=== PATIENT | male | born 1975 | race Caucasian/White ===

== ENCOUNTER 2019-03-16 16:08 | Inpatient (IN) | payer MEDICAID ==
[~2019-03-16] VITALS: Ht 170.2 cm; Wt 86.4 kg
[2019-03-16 17:00] VITALS: BP 120/79
[2019-03-16] MEDS ORDERED: LIB25 PO (17:30)
[2019-03-16 18:05] VITALS: BP 128/71
[2019-03-16] MEDS: LORazepam 2 MG TABLET PO PRN (18:25)
[2019-03-16] MEDS: HALOPERIDOL 5 MG TABLET PO PRN (18:25)
[2019-03-16 19:10] VITALS: BP 109/60
[2019-03-16 20:05] VITALS: BP 114/67
[2019-03-16] MEDS ORDERED: GuaiFENesin/D-METHORPHAN [SUGAR-FREE] 200-20MG/10 ML SYRUP UDCUP PO PRN (20:45)
[2019-03-16] MEDS ORDERED: ONDANSETRON HCL 4 MG TABLET PO PRN (20:45)
[2019-03-16] MEDS ORDERED: PETROLATUM,WHITE 28 GM JELLY TP PRN (20:45)
[2019-03-16] MEDS ORDERED: NICOTINE 14 MG/24 HOUR PATCH TD PRN (20:45)
[2019-03-16] MEDS ORDERED: CloNIDine HCL 0.1 MG TABLET PO PRN (20:45)
[2019-03-16] MEDS ORDERED: LOPERAMIDE HCL 2 MG CAPSULE PO PRN (20:45)
[2019-03-16] MEDS ORDERED: DOCUSATE SODIUM 100 MG CAPSULE PO PRN (20:45)
[2019-03-16] MEDS ORDERED: MAG HYDROX/AL HYDROX/SIMETH ES 30 ML SUSPENSION UDCUP PO PRN (20:45)
[2019-03-16] MEDS ORDERED: MAGNESIUM HYDROXIDE SUSPENSION 30 ML UDCUP PO PRN (20:45)
[2019-03-16] MEDS ORDERED: ALBUTEROL SULFATE HFA 90 MCG/PUFF 8 GM INHALER IH PRN (20:45)
[2019-03-16] MEDS ORDERED: IBUPROFEN 400 MG TABLET PO PRN (20:45)
[2019-03-16] MEDS ORDERED: ACETAMINOPHEN 325 MG TABLET PO PRN (20:45)
[2019-03-16 21:10] VITALS: BP 108/70
[2019-03-16 22:24] VITALS: BP 105/60
[2019-03-17] VITALS (8 sets, daily range): BP systolic 99–122; BP diastolic 63–78
[2019-03-17] MEDS: LORazepam 2 MG TABLET PO PRN (06:17)
[2019-03-17] MEDS: HALOPERIDOL 5 MG TABLET PO PRN (06:17)
[2019-03-17 08:30] LABS: BASOPHILS % (AUTO) 0.4 % (0.0-2.0); EOSINOPHILS % (AUTO) 1.4 % (1.0-6.0); HEMATOCRIT 41.3 % (41-53); HEMOGLOBIN 13.6 g/dL (13.5-17.5); LYMPHOCYTES # (AUTO) 0.9 K/uL (1.0-4.8); LYMPHOCYTES % (AUTO) 26.2 % (22.0-44.0); MEAN CORPUSCULAR HEMOGLOBIN 31.5 pg (26.0-34.0); MEAN CORPUSCULAR VOLUME 95 fL (80-100); MONOCYTES # (AUTO) 0.3 K/uL (0.1-1.0); MONOCYTES % (AUTO) 7.9 % (2.0-9.0); NEUTROPHILS # (AUTO) 2.2 K/uL (1.8-7.7); NEUTROPHILS % (AUTO) 64.1 % (40.0-70.0); PLATELET COUNT (AUTO) 155 K/uL (150-450); RED BLOOD CELL COUNT(AUTO) 4.33 MIL/uL (4.50-5.90); RED CELL DISTRIBUTION WIDTH 13.7 % (11.5-14.5)
[2019-03-17 09:01] LABS: ALANINE AMINOTRANSFERASE 264 U/L (12-78); ALBUMIN 3.7 g/dL (3.4-5.0); ALKALINE PHOSPHATASE 96 U/L (46-116); ANION GAP 7 mmol/L (8-16); ASPARTATE AMINOTRANSFERASE 209 U/L (15-37); BILIRUBIN,TOTAL 0.6 mg/dL (0.1-1.0); CARBON DIOXIDE 32 mmol/L (22-29); CHLORIDE 104 mmol/L (98-107); CHOL/HDL RATIO 2.2 (4.2-7.3); CHOLESTEROL 179 mg/dL (131-200); CREATININE 0.96 mg/dL (0.60-1.30); FREE T4 (FREE THYROXINE) 0.78 ng/dL (0.76-1.46); GLOMERULAR FILTR. RATE CALC > 60 mL/min (>60); GLUCOSE,RANDOM 123 mg/dL (70-110); HDL CHOLESTEROL 82 mg/dL (40-60); LDL CHOL (CALC.) 85 mg/dL (0-130); POTASSIUM 4.1 mmol/L (3.5-5.1); SODIUM SERUM 143 mmol/L (136-145); THYROID STIMULATING HORMONE 1.97 uIU/mL (0.36-3.74); TOTAL PROTEIN, SERUM 6.4 g/dL (6.4-8.2); TRIGLYCERIDES 59 mg/dL (15-150); UREA NITROGEN, BLOOD 15 mg/dL (7-18)
[2019-03-17 09:21] LABS: HEMOGLOBIN A1C 5.7 % (4.5-6.2)
[2019-03-17] MEDS ORDERED: LORazepam 2 MG TABLET PO PRN (12:00)
[2019-03-17] MEDS ORDERED: CYANOCOBALAMIN 1,000 MCG/ML VIAL IM ONE (12:00)
[2019-03-17] MEDS: ESCITALOPRAM OXALATE 10 MG TABLET PO SCH (12:50)
[2019-03-17] MEDS: FOLIC ACID 1 MG TABLET PO SCH (12:50)
[2019-03-17] MEDS: MULTIVITAMINS WITH MINERALS, THERAPEUTIC TABLET PO SCH (12:51)
[2019-03-17] MEDS: THIAMINE HCL 100 MG TABLET PO SCH (16:40)
[2019-03-17] MEDS: ZOLPIDEM TARTRATE 10 MG TABLET PO PRN (21:09)
[2019-03-17] MEDS: RisperiDONE 1 MG TABLET PO SCH (21:09)
[2019-03-18 05:09] VITALS: BP 107/60
[2019-03-18] MEDS ORDERED: LORazepam 2 MG TABLET PO PRN (07:00)
[2019-03-18 08:05] VITALS: BP 102/62
[2019-03-18] MEDS: FOLIC ACID 1 MG TABLET PO SCH (09:01)
[2019-03-18] MEDS: ESCITALOPRAM OXALATE 10 MG TABLET PO SCH (09:01)
[2019-03-18] MEDS: THIAMINE HCL 100 MG TABLET PO SCH ×2 (09:02→17:00)
[2019-03-18] MEDS: LORazepam 2 MG TABLET PO SCH ×4 (09:03→20:10)
[2019-03-18] MEDS: MULTIVITAMINS WITH MINERALS, THERAPEUTIC TABLET PO SCH (09:04)
[2019-03-18 17:04] VITALS: BP 110/68
[2019-03-18] MEDS: RisperiDONE 1 MG TABLET PO SCH (20:10)
[2019-03-18] MEDS: ZOLPIDEM TARTRATE 10 MG TABLET PO PRN (20:10)
[2019-03-19 05:22] VITALS: BP 102/68
[2019-03-19 08:28] VITALS: BP 104/63
[2019-03-19] MEDS: THIAMINE HCL 100 MG TABLET PO SCH ×2 (09:03→17:03)
[2019-03-19] MEDS: LORazepam 2 MG TABLET PO SCH ×4 (09:03→20:44)
[2019-03-19] MEDS: FOLIC ACID 1 MG TABLET PO SCH (09:04)
[2019-03-19] MEDS: ESCITALOPRAM OXALATE 10 MG TABLET PO SCH (09:04)
[2019-03-19] MEDS: MULTIVITAMINS WITH MINERALS, THERAPEUTIC TABLET PO SCH (09:04)
[2019-03-19 16:55] VITALS: BP 100/61
[2019-03-19 18:38] VITALS: BP 100/61
[2019-03-19] MEDS: ZOLPIDEM TARTRATE 10 MG TABLET PO PRN (20:45)
[2019-03-19] MEDS: RisperiDONE 1 MG TABLET PO SCH (20:45)
[2019-03-20] MEDS ORDERED: LORazepam 1 MG TABLET PO PRN (07:00)
[2019-03-20 08:01] VITALS: BP 104/62
[2019-03-20] MEDS: FOLIC ACID 1 MG TABLET PO SCH (08:53)
[2019-03-20] MEDS ORDERED: ESCI10TA54 PO (08:53)
[2019-03-20] MEDS: MULTIVITAMINS WITH MINERALS, THERAPEUTIC TABLET PO SCH (08:53)
[2019-03-20] MEDS: ESCITALOPRAM OXALATE 10 MG TABLET PO SCH (08:53)
[2019-03-20] MEDS ORDERED: RISP1 PO (08:53)
[2019-03-20] MEDS: THIAMINE HCL 100 MG TABLET PO SCH (08:59)
[2019-03-20] MEDS ORDERED: LORazepam 1 MG TABLET PO SCH (09:00)
[2019-03-21] MEDS ORDERED: LORazepam 1 MG TABLET PO PRN (07:00)
== END 2019-03-20 10:05 | disposition home or self-care (01) | DRG 750 ==
LOC: B3A 16:49
DX: F25.1 Schizoaffective disorder, depressive type (principal); R45.851 Suicidal ideations; R74.0 Nonspecific elevation of levels of transaminase and lactic acid dehydrogenase [LDH]; I10 Essential (primary) hypertension; K21.9 Gastro-esophageal reflux disease without esophagitis; D72.819 Decreased white blood cell count, unspecified; Z56.0 Unemployment, unspecified; Z59.0 Homelessness; Z79.899 Other long term (current) drug therapy
CPT/HCPCS: 80074; 83036; 84439; 84443; 87081; J3420

== ENCOUNTER 2019-10-24 17:17 | Emergency (ER) | payer MEDICAID, OTHER ==
[~2019-10-24] VITALS: Ht 177.8 cm; Wt 81.8 kg
[~2019-10-24 17:17] MED LIST: ESCI10TA54 PO; RISP1 PO
[2019-10-24] MEDS ORDERED: LIB5 PO (17:32)
[2019-10-24] MEDS ORDERED: LIB25 PO (18:05)
[2019-10-24] MEDS ORDERED: OMEP20 PO (18:05)
[2019-10-24] MEDS ORDERED: HYD25 PO (18:05)
[2019-10-24 18:08] LABS: BASOPHILS % (AUTO) 0.6 % (0.0-2.0); EOSINOPHILS % (AUTO) 1.8 % (1.0-6.0); HEMATOCRIT 37.4 % (41-53); HEMOGLOBIN 12.9 g/dL (13.5-17.5); LYMPHOCYTES # (AUTO) 1.6 K/uL (1.0-4.8); LYMPHOCYTES % (AUTO) 37.1 % (22.0-44.0); MEAN CORPUSCULAR HEMOGLOBIN 32.2 pg (26.0-34.0); MEAN CORPUSCULAR HGB CONC 34.6 G/dL (31.0-37.0); MEAN CORPUSCULAR VOLUME 93 fL (80-100); MONOCYTES # (AUTO) 0.3 K/uL (0.1-1.0); MONOCYTES % (AUTO) 7.3 % (2.0-9.0); NEUTROPHILS # (AUTO) 2.3 K/uL (1.8-7.7); NEUTROPHILS % (AUTO) 53.2 % (40.0-70.0); PLATELET COUNT (AUTO) 201 K/uL (150-450); RED BLOOD CELL COUNT(AUTO) 4.01 MIL/uL (4.50-5.90); RED CELL DISTRIBUTION WIDTH 13.4 % (11.5-14.5)
[2019-10-24 18:17] LABS: ANION GAP 5 mmol/L (8-16); CALCIUM, TOTAL 8.5 mg/dL (8.8-10.5); CARBON DIOXIDE 31 mmol/L (22-29); CHLORIDE 105 mmol/L (98-107); CREATININE 1.19 mg/dL (0.60-1.30); GLOMERULAR FILTR. RATE CALC > 60 mL/min (>60); GLUCOSE,RANDOM 93 mg/dL (70-110); SODIUM SERUM 141 mmol/L (136-145); UREA NITROGEN, BLOOD 10 mg/dL (7-18)
[2019-10-24 18:23] LABS: ALANINE AMINOTRANSFERASE 116 U/L (12-78); ALBUMIN 3.4 g/dL (3.4-5.0); ALKALINE PHOSPHATASE 98 U/L (46-116); ASPARTATE AMINOTRANSFERASE 99 U/L (15-37); BILIRUBIN,TOTAL 0.3 mg/dL (0.1-1.0); TOTAL PROTEIN, SERUM 6.9 g/dL (6.4-8.2)
[2019-10-24 19:08] LABS: AMPHET/METH SCREEN,URINE POSITIVE (NEGATIVE); BARBITURATE SCREEN, URINE NEGATIVE (NEGATIVE); BENZODIAZEPINES SCREEN,URINE POSITIVE (NEGATIVE); CANNABINOID SCREEN,URINE POSITIVE (NEGATIVE); COCAINE SCREEN,URINE NEGATIVE (NEGATIVE); METHADONE SCREEN, URINE NEGATIVE (NEGATIVE); OPIATE SCREEN,URINE NEGATIVE (NEGATIVE)
[2019-10-24 19:12] LABS: PHENCYCLIDINE SCREEN,URINE NEGATIVE (NEGATIVE)
[2019-10-24] MEDS ORDERED: HALOPERIDOL 5 MG TABLET PO ONE (20:00)
[2019-10-24 20:08] VITALS: BP 127/83
== END 2019-10-24 20:16 | disposition home or self-care (01) ==
LOC: EMS 17:18
DX: F25.9 Schizoaffective disorder, unspecified (principal); F32.9 Major depressive disorder, single episode, unspecified; F15.10 Other stimulant abuse, uncomplicated; F12.90 Cannabis use, unspecified, uncomplicated; F19.90 Other psychoactive substance use, unspecified, uncomplicated
CPT/HCPCS: 36415; 80053; 80307; 85025; 99284; G0480

== ENCOUNTER 2019-11-17 16:51 | Emergency (ER) | payer MEDICAID, OTHER ==
[~2019-11-17] VITALS: Ht 172.7 cm; Wt 98.0 kg
[~2019-11-17 16:51] MED LIST changes: -ESCI10TA54 PO; +ESCI10TA61 PO; +HYD25 PO; +LIB25 PO; +LIB5 PO; +OMEP20 PO
[2019-11-17] MEDS ORDERED: RISP1TAB89 PO (18:13)
[2019-11-17] MEDS ORDERED: HYDR-3831 PO (18:13)
[2019-11-17] MEDS ORDERED: RISP2TAB76 PO (18:13)
[2019-11-17] MEDS ORDERED: ESCI20TA43 PO (18:13)
[2019-11-17] MEDS ORDERED: IBUPROFEN 800 MG TABLET PO ONE (18:15)
[2019-11-17 20:00] VITALS: BP 129/93
== END 2019-11-17 20:05 | disposition home or self-care (01) ==
LOC: EMS 16:53
DX: S53.492A Other sprain of left elbow, initial encounter (principal); F31.9 Bipolar disorder, unspecified; F20.9 Schizophrenia, unspecified; F12.90 Cannabis use, unspecified, uncomplicated; F15.90 Other stimulant use, unspecified, uncomplicated; Z79.899 Other long term (current) drug therapy; X50.1XXA Overexertion from prolonged static or awkward postures, initial encounter; Y93.89 Activity, other specified; Y92.89 Other specified places as the place of occurrence of the external cause; Y99.8 Other external cause status

== ENCOUNTER 2020-12-13 17:29 | Inpatient (IN) | payer MEDICAID, OTHER ==
[~2020-12-13] VITALS: Ht 170.2 cm; Wt 82.4 kg
[~2020-12-13 17:29] MED LIST changes: -ESCI10TA61 PO; +ESCI20TA54 PO; +HYDR-3831 PO; -LIB5 PO; -RISP1 PO; +RISP1TAB89 PO; +RISP2TAB76 PO
[2020-12-13] MEDS ORDERED: DiphenhydrAMINE HCL 50 MG/ML VIAL IM ONE (18:00)
[2020-12-13] MEDS ORDERED: LORazepam 2 MG/ML VIAL IM ONE (18:00)
[2020-12-13] MEDS ORDERED: HALOPERIDOL LACTATE 5 MG/ML VIAL IM ONE (18:00)
[2020-12-13 18:50] LABS: COVID AG,FIA SOURCE NASOPHARYNGEAL
[2020-12-13 19:01] LABS: AMPHET/METH SCREEN,URINE NEGATIVE (NEGATIVE); BARBITURATE SCREEN, URINE NEGATIVE (NEGATIVE); BENZODIAZEPINES SCREEN,URINE NEGATIVE (NEGATIVE); CANNABINOID SCREEN,URINE NEGATIVE (NEGATIVE); COCAINE SCREEN,URINE NEGATIVE (NEGATIVE); METHADONE SCREEN, URINE NEGATIVE (NEGATIVE); OPIATE SCREEN,URINE NEGATIVE (NEGATIVE); PHENCYCLIDINE SCREEN,URINE NEGATIVE (NEGATIVE)
[2020-12-13 19:20] LABS: BASOPHILS % (AUTO) 1.2 % (0.0-2.0); HEMATOCRIT 40.2 % (41-53); HEMOGLOBIN 13.4 g/dL (13.5-17.5); LYMPHOCYTES # (AUTO) 1.5 K/uL (1.0-4.8); LYMPHOCYTES % (AUTO) 46.5 % (22.0-44.0); MEAN CORPUSCULAR HGB CONC 33.3 G/dL (31.0-37.0); MEAN CORPUSCULAR VOLUME 96 fL (80-100); MONOCYTES # (AUTO) 0.3 K/uL (0.1-1.0); NEUTROPHILS # (AUTO) 1.3 K/uL (1.8-7.7); NEUTROPHILS % (AUTO) 40.3 % (40.0-70.0); PLATELET COUNT (AUTO) 212 K/uL (150-450); RED BLOOD CELL COUNT(AUTO) 4.18 MIL/uL (4.50-5.90); RED CELL DISTRIBUTION WIDTH 14.6 % (11.5-14.5)
[2020-12-13 19:30] LABS: ANION GAP 13 mmol/L (8-16); CARBON DIOXIDE 25 mmol/L (22-29); CHLORIDE 106 mmol/L (98-107); CREATININE 0.87 mg/dL (0.60-1.30); GLOMERULAR FILTR. RATE CALC > 60 mL/min (>60); GLUCOSE,RANDOM 91 mg/dL (70-110); POTASSIUM 3.8 mmol/L (3.5-5.1); SODIUM SERUM 144 mmol/L (136-145); UREA NITROGEN, BLOOD 9 mg/dL (7-18)
[2020-12-13 19:36] LABS: ALANINE AMINOTRANSFERASE 86 U/L (12-78); ALBUMIN 3.3 g/dL (3.4-5.0); ALKALINE PHOSPHATASE 169 U/L (46-116); ASPARTATE AMINOTRANSFERASE 118 U/L (15-37); BILIRUBIN,TOTAL 0.3 mg/dL (0.1-1.0); TOTAL PROTEIN, SERUM 7.4 g/dL (6.4-8.2)
[2020-12-14] VITALS (7 sets, daily range): BP systolic 114–125; BP diastolic 65–78
[2020-12-14] MEDS: LORazepam 2 MG TABLET PO PRN ×4 (06:13→18:34)
[2020-12-14] MEDS: HALOPERIDOL 5 MG TABLET PO PRN ×2 (06:13→14:31)
[2020-12-14] MEDS ORDERED: INFLUENZA VIRUS VACCINE QVS 2020-21 (6MO+)/PF 60 MCG/0.5 ML SYRINGE IM ONE (06:45)
[2020-12-14] MEDS ORDERED: PETROLATUM,WHITE 28 GM JELLY TP PRN (07:30)
[2020-12-14] MEDS ORDERED: GuaiFENesin/D-METHORPHAN [SUGAR-FREE] 200-20MG/10 ML SYRUP UDCUP PO PRN (07:30)
[2020-12-14] MEDS ORDERED: ALBUTEROL SULFATE HFA 90 MCG/PUFF 8 GM INHALER IH PRN (07:30)
[2020-12-14] MEDS ORDERED: DOCUSATE SODIUM 100 MG CAPSULE PO PRN (07:30)
[2020-12-14] MEDS ORDERED: IBUPROFEN 400 MG TABLET PO PRN (07:30)
[2020-12-14] MEDS ORDERED: CloNIDine HCL 0.1 MG TABLET PO PRN (07:30)
[2020-12-14] MEDS ORDERED: ACETAMINOPHEN 325 MG TABLET PO PRN (07:30)
[2020-12-14] MEDS ORDERED: ONDANSETRON HCL 4 MG TABLET PO PRN (07:30)
[2020-12-14] MEDS ORDERED: MAGNESIUM HYDROXIDE SUSPENSION 30 ML UDCUP PO PRN (07:30)
[2020-12-14] MEDS ORDERED: MAG HYDROX/AL HYDROX/SIMETH ES 30 ML SUSPENSION UDCUP PO PRN (07:30)
[2020-12-14] MEDS: ChlordiazePOXIDE HCL 25 MG CAPSULE PO SCH (16:40)
[2020-12-14] MEDS: LOPERAMIDE HCL 2 MG CAPSULE PO PRN (18:34)
[2020-12-14] MEDS: OLANZapine 10 MG TABLET PO SCH (20:35)
[2020-12-14] MEDS: PARoxetine HCL 20 MG TABLET PO SCH (20:36)
[2020-12-14] MEDS ORDERED: RisperiDONE 2 MG TABLET PO SCH (21:00)
[2020-12-15] VITALS (8 sets, daily range): BP systolic 99–125; BP diastolic 61–83
[2020-12-15] MEDS: OLANZapine 5 MG TABLET PO SCH (08:21)
[2020-12-15] MEDS: BusPIRone HCL 10 MG TABLET PO SCH ×2 (08:21→16:42)
[2020-12-15] MEDS: ChlordiazePOXIDE HCL 25 MG CAPSULE PO SCH ×2 (08:21→16:42)
[2020-12-15 08:35] LABS: CHOL/HDL RATIO 2.6 (4.2-7.3)
[2020-12-15] MEDS ORDERED: ESCITALOPRAM OXALATE 20 MG TABLET PO SCH (09:00)
[2020-12-15] MEDS ORDERED: RisperiDONE 1 MG TABLET PO SCH (09:00)
[2020-12-15] MEDS: LORazepam 2 MG TABLET PO PRN ×2 (12:23→18:57)
[2020-12-15] MEDS: LOPERAMIDE HCL 2 MG CAPSULE PO PRN (18:57)
[2020-12-15] MEDS: PARoxetine HCL 20 MG TABLET PO SCH (20:32)
[2020-12-15] MEDS: OLANZapine 10 MG TABLET PO SCH (20:32)
[2020-12-15] MEDS: ZOLPIDEM TARTRATE 10 MG TABLET PO PRN (20:33)
[2020-12-15] MEDS: NICOTINE 14 MG/24 HOUR PATCH TD PRN (21:38)
[2020-12-16] VITALS (7 sets, daily range): BP systolic 100–126; BP diastolic 62–82
[2020-12-16] MEDS: LORazepam 2 MG TABLET PO PRN (02:02)
[2020-12-16] MEDS: LOPERAMIDE HCL 2 MG CAPSULE PO PRN (02:06)
[2020-12-16] MEDS ORDERED: ChlordiazePOXIDE HCL 25 MG CAPSULE PO PRN ×2 (07:00→10:45)
[2020-12-16] MEDS: ChlordiazePOXIDE HCL 25 MG CAPSULE PO SCH ×5 (09:00→20:13)
[2020-12-16] MEDS: BusPIRone HCL 10 MG TABLET PO SCH ×2 (09:30→17:09)
[2020-12-16] MEDS: OLANZapine 5 MG TABLET PO SCH (09:30)
[2020-12-16] MEDS: OLANZapine 10 MG TABLET PO SCH (20:13)
[2020-12-16] MEDS: PARoxetine HCL 20 MG TABLET PO SCH (20:13)
[2020-12-17 02:30] VITALS: BP 128/77
[2020-12-17] MEDS: HALOPERIDOL 5 MG TABLET PO PRN ×2 (03:20→13:02)
[2020-12-17] MEDS: ZOLPIDEM TARTRATE 10 MG TABLET PO PRN (03:20)
[2020-12-17 04:10] VITALS: BP 106/68
[2020-12-17] MEDS ORDERED: ChlordiazePOXIDE HCL 25 MG CAPSULE PO PRN (07:00)
[2020-12-17 08:09] VITALS: BP 115/69
[2020-12-17] MEDS ORDERED: ChlordiazePOXIDE HCL 25 MG CAPSULE PO SCH (09:00)
[2020-12-17 09:05] VITALS: BP 115/69
[2020-12-17] MEDS: BusPIRone HCL 10 MG TABLET PO SCH ×2 (10:02→17:06)
[2020-12-17] MEDS: ChlordiazePOXIDE HCL 25 MG CAPSULE PO SCH ×4 (10:03→20:45)
[2020-12-17] MEDS: OLANZapine 5 MG TABLET PO SCH (10:31)
[2020-12-17 17:24] VITALS: BP 101/62
[2020-12-17] MEDS: OLANZapine 10 MG TABLET PO SCH (20:45)
[2020-12-17] MEDS: PARoxetine HCL 20 MG TABLET PO SCH (20:45)
[2020-12-17 22:39] VITALS: BP 101/62
[2020-12-18] MEDS ORDERED: ChlordiazePOXIDE HCL 10 MG CAPSULE PO PRN (07:00)
[2020-12-18 09:00] VITALS: BP 128/79
[2020-12-18] MEDS: ChlordiazePOXIDE HCL 10 MG CAPSULE PO SCH ×4 (09:16→20:28)
[2020-12-18] MEDS: OLANZapine 5 MG TABLET PO SCH (09:16)
[2020-12-18] MEDS: BusPIRone HCL 10 MG TABLET PO SCH ×2 (09:16→16:42)
[2020-12-18 13:44] VITALS: BP 128/79
[2020-12-18 17:18] VITALS: BP 111/66
[2020-12-18 19:32] VITALS: BP 111/66
[2020-12-18] MEDS: PARoxetine HCL 20 MG TABLET PO SCH (20:28)
[2020-12-18] MEDS: OLANZapine 10 MG TABLET PO SCH (20:28)
[2020-12-18] MEDS: ZOLPIDEM TARTRATE 10 MG TABLET PO PRN (20:51)
[2020-12-19 01:38] VITALS: BP 125/70
[2020-12-19 04:30] VITALS: BP 124/73
[2020-12-19] MEDS ORDERED: ChlordiazePOXIDE HCL 10 MG CAPSULE PO PRN (07:00)
[2020-12-19 08:27] VITALS: BP 102/65
[2020-12-19 09:00] VITALS: BP 102/65
[2020-12-19] MEDS ORDERED: ChlordiazePOXIDE HCL 10 MG CAPSULE PO SCH (09:00)
[2020-12-19] MEDS: OLANZapine 5 MG TABLET PO SCH (09:59)
[2020-12-19] MEDS: BusPIRone HCL 10 MG TABLET PO SCH ×2 (09:59→18:02)
[2020-12-19] MEDS: ChlordiazePOXIDE HCL 10 MG CAPSULE PO PRN ×2 (10:18→14:18)
[2020-12-19] MEDS: NICOTINE 14 MG/24 HOUR PATCH TD PRN (12:31)
[2020-12-19 17:23] VITALS: BP 110/70
[2020-12-19] MEDS: HALOPERIDOL 5 MG TABLET PO PRN (18:04)
[2020-12-19] MEDS: PARoxetine HCL 20 MG TABLET PO SCH (20:16)
[2020-12-19] MEDS: ZOLPIDEM TARTRATE 10 MG TABLET PO PRN ×2 (20:16→20:37)
[2020-12-19] MEDS: OLANZapine 10 MG TABLET PO SCH (20:16)
[2020-12-20 05:23] VITALS: BP 108/72
[2020-12-20] MEDS ORDERED: ChlordiazePOXIDE HCL 10 MG CAPSULE PO PRN (07:00)
[2020-12-20] MEDS: HALOPERIDOL 5 MG TABLET PO PRN ×2 (08:36→17:01)
[2020-12-20] MEDS: BusPIRone HCL 10 MG TABLET PO SCH ×2 (08:36→17:01)
[2020-12-20] MEDS: OLANZapine 5 MG TABLET PO SCH (08:36)
[2020-12-20 08:42] VITALS: BP 126/80
[2020-12-20] MEDS: QUEtiapine FUMARATE 25 MG TABLET PO PRN ×2 (09:48→20:05)
[2020-12-20 16:26] VITALS: BP 105/65
[2020-12-20] MEDS: THIAMINE 100 MG TABLET PO SCH (17:01)
[2020-12-20] MEDS: OLANZapine 10 MG TABLET PO SCH (20:05)
[2020-12-20] MEDS: ZOLPIDEM TARTRATE 10 MG TABLET PO PRN (20:05)
[2020-12-20] MEDS: PARoxetine HCL 20 MG TABLET PO SCH (20:05)
[2020-12-21 06:04] VITALS: BP 114/82
[2020-12-21 08:18] VITALS: BP 126/88
[2020-12-21] MEDS ORDERED: MULTIVITAMINS, THERAPEUTIC TABLET PO SCH (09:00)
[2020-12-21] MEDS ORDERED: FOLIC ACID 1 MG TABLET PO SCH (09:00)
[2020-12-21] MEDS: OLANZapine 5 MG TABLET PO SCH (09:06)
[2020-12-21] MEDS: BusPIRone HCL 10 MG TABLET PO SCH (09:06)
[2020-12-21] MEDS: THIAMINE 100 MG TABLET PO SCH (09:06)
[2020-12-21] MEDS: HALOPERIDOL 5 MG TABLET PO PRN (09:08)
[2020-12-21] MEDS ORDERED: OLAN10TA3 PO (13:15)
[2020-12-21] MEDS ORDERED: BUSP10TA23 PO (13:15)
[2020-12-21] MEDS ORDERED: PARO-38 PO (13:15)
[2020-12-21] MEDS ORDERED: OLAN5TAB2 PO (13:15)
== END 2020-12-21 16:05 | disposition home or self-care (01) | DRG 750 ==
LOC: EMS 17:29 → B3A 19:00
PROVIDERS: ADMIT Psychiatry & Neurology Child & Adolescent Psychiatry; ATTEND Psychiatry & Neurology Child & Adolescent Psychiatry
DX: F25.1 Schizoaffective disorder, depressive type (principal); R45.851 Suicidal ideations; D72.819 Decreased white blood cell count, unspecified; D64.9 Anemia, unspecified; F10.20 Alcohol dependence, uncomplicated; Z20.822 Contact with and (suspected) exposure to COVID-19
CPT/HCPCS: 87426; 90686; 99291; G0480; J1200; J1630; J2060; 36415-L1; 36415-TC; 80053-TC; 80061-TC; 80307; 80307-TC; 85025-TC; G0008; Z7502; Z7610

== ENCOUNTER 2021-07-29 15:50 | Emergency (ER) | payer MEDICAID, OTHER ==
[~2021-07-29] VITALS: Ht 175.3 cm; Wt 77.3 kg
[~2021-07-29 15:50] MED LIST changes: +BUSP10TA23 PO; -ESCI20TA54 PO; -HYD25 PO; -HYDR-3831 PO; -LIB25 PO; +OLAN10TA74 PO; +OLAN5TAB52 PO; -OMEP20 PO; +PARO-38 PO; -RISP1TAB89 PO; -RISP2TAB76 PO
[2021-07-29 16:10] VITALS: BP 145/78
[2021-07-29 17:06] LABS: ANION GAP 16 mmol/L (8-16); CALCIUM, TOTAL 8.9 mg/dL (8.8-10.5); CARBON DIOXIDE 22 mmol/L (22-29); CHLORIDE 103 mmol/L (98-107); CREATININE 0.87 mg/dL (0.60-1.30); GLOMERULAR FILTR. RATE CALC > 60 mL/min (>60); GLUCOSE,RANDOM 98 mg/dL (70-110); POTASSIUM 3.8 mmol/L (3.5-5.1); SODIUM SERUM 141 mmol/L (136-145); UREA NITROGEN, BLOOD 5 mg/dL (7-18)
[2021-07-29 17:08] LABS: BASOPHILS % (AUTO) 0.3 % (0.0-2.0); EOSINOPHILS % (AUTO) 1.7 % (1.0-6.0); HEMATOCRIT 43.1 % (41-53); HEMOGLOBIN 14.5 g/dL (13.5-17.5); LYMPHOCYTES # (AUTO) 1.7 K/uL (1.0-4.8); LYMPHOCYTES % (AUTO) 45.3 % (22.0-44.0); MEAN CORPUSCULAR HEMOGLOBIN 32.6 pg (26.0-34.0); MEAN CORPUSCULAR HGB CONC 33.7 G/dL (31.0-37.0); MEAN CORPUSCULAR VOLUME 97 fL (80-100); MONOCYTES # (AUTO) 0.4 K/uL (0.1-1.0); MONOCYTES % (AUTO) 10.3 % (2.0-9.0); NEUTROPHILS # (AUTO) 1.6 K/uL (1.8-7.7); NEUTROPHILS % (AUTO) 42.4 % (40.0-70.0); PLATELET COUNT (AUTO) 184 K/uL (150-450); RED BLOOD CELL COUNT(AUTO) 4.46 MIL/uL (4.50-5.90); RED CELL DISTRIBUTION WIDTH 13.9 % (11.5-14.5)
[2021-07-29 17:12] LABS: ALANINE AMINOTRANSFERASE 213 U/L (12-78); ALBUMIN 4.1 g/dL (3.4-5.0); ALKALINE PHOSPHATASE 120 U/L (46-116); ASPARTATE AMINOTRANSFERASE 242 U/L (15-37); BILIRUBIN,TOTAL 0.5 mg/dL (0.1-1.0); TOTAL PROTEIN, SERUM 7.8 g/dL (6.4-8.2)
[2021-07-29 17:13] LABS: AMPHET/METH SCREEN,URINE POSITIVE (NEGATIVE); BARBITURATE SCREEN, URINE NEGATIVE (NEGATIVE); BENZODIAZEPINES SCREEN,URINE NEGATIVE (NEGATIVE); CANNABINOID SCREEN,URINE NEGATIVE (NEGATIVE); COCAINE SCREEN,URINE NEGATIVE (NEGATIVE); METHADONE SCREEN, URINE NEGATIVE (NEGATIVE); OPIATE SCREEN,URINE NEGATIVE (NEGATIVE)
[2021-07-29 17:15] LABS: PHENCYCLIDINE SCREEN,URINE NEGATIVE (NEGATIVE)
== END 2021-07-29 18:05 | disposition home or self-care (01) ==
LOC: EMS 15:53
DX: F10.129 Alcohol abuse with intoxication, unspecified (principal); F15.10 Other stimulant abuse, uncomplicated; F25.1 Schizoaffective disorder, depressive type; Z79.899 Other long term (current) drug therapy
CPT/HCPCS: 36415; 80053; 80307; 85025; 99283; G0480

== ENCOUNTER 2021-08-19 22:24 | Inpatient (IN) | payer MEDICAID, OTHER ==
[~2021-08-19] VITALS: Ht 170.2 cm; Wt 87.5 kg
[2021-08-19 23:12] LABS: GLUCOMETER DEV NAME(LOC) POC.BV
[2021-08-19] MEDS ORDERED: HALOPERIDOL 5 MG TABLET PO PRN (23:30)
[2021-08-20] MEDS: LORazepam 2 MG TABLET PO PRN (00:39)
[2021-08-20 01:28] VITALS: BP 151/92
[2021-08-20 07:08] LABS: BASOPHILS % (AUTO) 0.4 % (0.0-2.0); EOSINOPHILS % (AUTO) 3.2 % (1.0-6.0); HEMOGLOBIN 13.5 g/dL (13.5-17.5); LYMPHOCYTES # (AUTO) 1.7 K/uL (1.0-4.8); LYMPHOCYTES % (AUTO) 39.4 % (22.0-44.0); MEAN CORPUSCULAR HEMOGLOBIN 32.9 pg (26.0-34.0); MEAN CORPUSCULAR HGB CONC 33.8 G/dL (31.0-37.0); MEAN CORPUSCULAR VOLUME 97 fL (80-100); MONOCYTES # (AUTO) 0.3 K/uL (0.1-1.0); MONOCYTES % (AUTO) 7.9 % (2.0-9.0); NEUTROPHILS # (AUTO) 2.1 K/uL (1.8-7.7); NEUTROPHILS % (AUTO) 49.1 % (40.0-70.0); PLATELET COUNT (AUTO) 178 K/uL (150-450); RED BLOOD CELL COUNT(AUTO) 4.11 MIL/uL (4.50-5.90); RED CELL DISTRIBUTION WIDTH 13.8 % (11.5-14.5)
[2021-08-20 07:22] LABS: HEMOGLOBIN A1C 5.3 % (3.8-5.6)
[2021-08-20 07:33] LABS: ALANINE AMINOTRANSFERASE 173 U/L (12-78); ALBUMIN 3.5 g/dL (3.4-5.0); ALKALINE PHOSPHATASE 112 U/L (46-116); ANION GAP 6 mmol/L (8-16); ASPARTATE AMINOTRANSFERASE 134 U/L (15-37); BILIRUBIN,TOTAL 0.7 mg/dL (0.1-1.0); CALCIUM, TOTAL 8.5 mg/dL (8.8-10.5); CARBON DIOXIDE 29 mmol/L (22-29); CHLORIDE 106 mmol/L (98-107); CHOL/HDL RATIO 2.6 (4.2-7.3); CHOLESTEROL 187 mg/dL (131-200); FREE T4 (FREE THYROXINE) 0.83 ng/dL (0.76-1.46); GLOMERULAR FILTR. RATE CALC > 60 mL/min (>60); GLUCOSE,RANDOM 91 mg/dL (70-110); HDL CHOLESTEROL 71 mg/dL (40-60); LDL CHOL (CALC.) 103 mg/dL (0-130); POTASSIUM 3.8 mmol/L (3.5-5.1); SODIUM SERUM 141 mmol/L (136-145); THYROID STIMULATING HORMONE 2.39 uIU/mL (0.36-3.74); TOTAL PROTEIN, SERUM 6.9 g/dL (6.4-8.2); TRIGLYCERIDES 64 mg/dL (15-150); UREA NITROGEN, BLOOD 11 mg/dL (7-18)
[2021-08-20 08:31] VITALS: BP 134/82
[2021-08-20] MEDS: BusPIRone HCL 15 MG TABLET PO SCH (10:41)
[2021-08-20] MEDS: RisperiDONE 1 MG TABLET PO SCH (10:41)
[2021-08-20] MEDS: GABAPENTIN 300 MG CAPSULE PO SCH (10:41)
[2021-08-20] MEDS: PARoxetine HCL 10 MG TABLET PO SCH (10:41)
[2021-08-20] MEDS: NICOTINE 7 MG/24 HOUR PATCH TD SCH (10:48)
[2021-08-20] MEDS ORDERED: MAGNESIUM HYDROXIDE SUSPENSION 30 ML UDCUP PO PRN (11:15)
[2021-08-20] MEDS ORDERED: CloNIDine HCL 0.1 MG TABLET PO PRN (11:15)
[2021-08-20] MEDS ORDERED: NICOTINE 14 MG/24 HOUR PATCH TD PRN (11:15)
[2021-08-20] MEDS ORDERED: ONDANSETRON HCL 4 MG TABLET PO PRN (11:15)
[2021-08-20] MEDS ORDERED: IBUPROFEN 400 MG TABLET PO PRN (11:15)
[2021-08-20] MEDS ORDERED: GuaiFENesin/D-METHORPHAN [SUGAR-FREE] 200-20MG/10 ML SYRUP UDCUP PO PRN (11:15)
[2021-08-20] MEDS ORDERED: ACETAMINOPHEN 325 MG TABLET PO PRN (11:15)
[2021-08-20] MEDS ORDERED: ALBUTEROL SULFATE HFA 90 MCG/PUFF 8 GM INHALER IH PRN (11:15)
[2021-08-20] MEDS ORDERED: PETROLATUM,WHITE 28 GM JELLY TP PRN (11:15)
[2021-08-20] MEDS ORDERED: DOCUSATE SODIUM 100 MG CAPSULE PO PRN (11:15)
[2021-08-20] MEDS ORDERED: LOPERAMIDE HCL 2 MG CAPSULE PO PRN (11:15)
[2021-08-20 16:17] VITALS: BP 102/65
[2021-08-20] MEDS: HydrOXYzine HCL 25 MG TABLET PO SCH (17:51)
[2021-08-20] MEDS: RisperiDONE 4 MG TABLET PO SCH (20:29)
[2021-08-21 01:00] VITALS: BP 122/78
[2021-08-21 08:07] VITALS: BP 117/60
[2021-08-21] MEDS: RisperiDONE 1 MG TABLET PO SCH (08:39)
[2021-08-21] MEDS: GABAPENTIN 300 MG CAPSULE PO SCH (08:39)
[2021-08-21] MEDS: BusPIRone HCL 15 MG TABLET PO SCH (08:39)
[2021-08-21] MEDS: PARoxetine HCL 10 MG TABLET PO SCH (08:39)
[2021-08-21] MEDS: HydrOXYzine HCL 25 MG TABLET PO SCH ×2 (08:39→16:30)
[2021-08-21] MEDS: NICOTINE 7 MG/24 HOUR PATCH TD SCH (08:40)
[2021-08-21] MEDS: LORazepam 2 MG TABLET PO PRN (13:48)
[2021-08-21 16:12] VITALS: BP 111/60
[2021-08-21] MEDS: RisperiDONE 4 MG TABLET PO SCH (20:30)
[2021-08-22 06:02] VITALS: BP 129/76
[2021-08-22 08:06] VITALS: BP 106/68
[2021-08-22] MEDS: HydrOXYzine HCL 25 MG TABLET PO SCH ×2 (09:10→16:53)
[2021-08-22] MEDS: GABAPENTIN 300 MG CAPSULE PO SCH (09:10)
[2021-08-22] MEDS: RisperiDONE 1 MG TABLET PO SCH (09:11)
[2021-08-22] MEDS: BusPIRone HCL 15 MG TABLET PO SCH (09:11)
[2021-08-22] MEDS: NICOTINE 7 MG/24 HOUR PATCH TD SCH (09:11)
[2021-08-22] MEDS: PARoxetine HCL 10 MG TABLET PO SCH (09:11)
[2021-08-22 16:07] VITALS: BP 107/65
[2021-08-22] MEDS: RisperiDONE 4 MG TABLET PO SCH (20:38)
[2021-08-23 00:58] VITALS: BP 104/62
[2021-08-23 08:22] VITALS: BP 114/69
[2021-08-23] MEDS: GABAPENTIN 300 MG CAPSULE PO SCH (08:46)
[2021-08-23] MEDS: BusPIRone HCL 15 MG TABLET PO SCH (08:46)
[2021-08-23] MEDS: HydrOXYzine HCL 25 MG TABLET PO SCH ×2 (08:46→16:36)
[2021-08-23] MEDS: PARoxetine HCL 10 MG TABLET PO SCH (08:46)
[2021-08-23] MEDS: NICOTINE 7 MG/24 HOUR PATCH TD SCH (08:46)
[2021-08-23] MEDS: RisperiDONE 1 MG TABLET PO SCH (08:46)
[2021-08-23 16:17] VITALS: BP 124/61
[2021-08-23] MEDS: RisperiDONE 4 MG TABLET PO SCH (20:28)
[2021-08-23] MEDS: ZOLPIDEM TARTRATE 10 MG TABLET PO PRN (20:59)
[2021-08-24 06:46] VITALS: BP 119/64
[2021-08-24 08:29] VITALS: BP 115/73
[2021-08-24] MEDS: PARoxetine HCL 10 MG TABLET PO SCH (09:24)
[2021-08-24] MEDS: HydrOXYzine HCL 25 MG TABLET PO SCH ×2 (09:24→16:01)
[2021-08-24] MEDS: RisperiDONE 1 MG TABLET PO SCH (09:24)
[2021-08-24] MEDS: GABAPENTIN 300 MG CAPSULE PO SCH (09:25)
[2021-08-24] MEDS: BusPIRone HCL 15 MG TABLET PO SCH (09:25)
[2021-08-24] MEDS: NICOTINE 7 MG/24 HOUR PATCH TD SCH (09:30)
[2021-08-24] MEDS: LORazepam 2 MG TABLET PO PRN (16:00)
[2021-08-24 16:09] VITALS: BP 109/70
[2021-08-24] MEDS: RisperiDONE 4 MG TABLET PO SCH (20:33)
[2021-08-25 00:33] VITALS: BP 115/72
[2021-08-25 08:04] VITALS: BP 119/73
[2021-08-25] MEDS: RisperiDONE 1 MG TABLET PO SCH (08:24)
[2021-08-25] MEDS: PARoxetine HCL 10 MG TABLET PO SCH (08:24)
[2021-08-25] MEDS: NICOTINE 7 MG/24 HOUR PATCH TD SCH (08:24)
[2021-08-25] MEDS: GABAPENTIN 300 MG CAPSULE PO SCH (08:24)
[2021-08-25] MEDS: BusPIRone HCL 15 MG TABLET PO SCH (08:24)
[2021-08-25] MEDS: HydrOXYzine HCL 25 MG TABLET PO SCH ×2 (08:24→16:42)
[2021-08-25 11:10] LABS: APPEARANCE,URINE CLEAR (CLEAR); BILIRUBIN,URINE NEGATIVE (NEGATIVE); GLUCOSE, URINE (UA) NEGATIVE (NEGATIVE); KETONES,URINE NEGATIVE (NEGATIVE); LEUKOCYTE ESTERASE ,URINE NEGATIVE (NEGATIVE); NITRATE,URINE NEGATIVE (NEGATIVE); OCCULT BLOOD,URINE NEGATIVE (NEGATIVE); PROTEIN,URINE NEGATIVE (NEGATIVE); UROBILINOGEN,URINE 0.2 mg/dL (<=1.0)
[2021-08-25 11:17] LABS: AMPHET/METH SCREEN,URINE NEGATIVE (NEGATIVE); BARBITURATE SCREEN, URINE NEGATIVE (NEGATIVE); BENZODIAZEPINES SCREEN,URINE NEGATIVE (NEGATIVE); CANNABINOID SCREEN,URINE NEGATIVE (NEGATIVE); COCAINE SCREEN,URINE NEGATIVE (NEGATIVE); METHADONE SCREEN, URINE NEGATIVE (NEGATIVE); OPIATE SCREEN,URINE NEGATIVE (NEGATIVE)
[2021-08-25 11:34] LABS: PHENCYCLIDINE SCREEN,URINE NEGATIVE (NEGATIVE)
[2021-08-25 16:07] VITALS: BP 108/66
[2021-08-25] MEDS: RisperiDONE 4 MG TABLET PO SCH (20:07)
[2021-08-25] MEDS: ZOLPIDEM TARTRATE 10 MG TABLET PO PRN (20:07)
[2021-08-26 01:06] VITALS: BP 116/70
[2021-08-26 08:10] VITALS: BP 107/66
[2021-08-26] MEDS: PARoxetine HCL 10 MG TABLET PO SCH (08:16)
[2021-08-26] MEDS: GABAPENTIN 300 MG CAPSULE PO SCH (08:16)
[2021-08-26] MEDS: HydrOXYzine HCL 25 MG TABLET PO SCH ×2 (08:17→16:56)
[2021-08-26] MEDS: RisperiDONE 1 MG TABLET PO SCH (08:17)
[2021-08-26] MEDS: BusPIRone HCL 15 MG TABLET PO SCH (08:17)
[2021-08-26] MEDS: NICOTINE 7 MG/24 HOUR PATCH TD SCH (08:17)
[2021-08-26] MEDS: MAG HYDROX/AL HYDROX/SIMETH ES 30 ML SUSPENSION UDCUP PO PRN (15:03)
[2021-08-26] MEDS: LORazepam 2 MG TABLET PO PRN (15:04)
[2021-08-26 16:14] VITALS: BP 127/81
[2021-08-26] MEDS: RisperiDONE 4 MG TABLET PO SCH (20:18)
[2021-08-26] MEDS: ZOLPIDEM TARTRATE 10 MG TABLET PO PRN (20:21)
[2021-08-27 06:54] VITALS: BP 122/76
[2021-08-27] MEDS: GABAPENTIN 300 MG CAPSULE PO SCH (09:59)
[2021-08-27] MEDS: PARoxetine HCL 10 MG TABLET PO SCH (09:59)
[2021-08-27] MEDS: RisperiDONE 1 MG TABLET PO SCH (09:59)
[2021-08-27] MEDS: HydrOXYzine HCL 25 MG TABLET PO SCH ×2 (09:59→16:15)
[2021-08-27] MEDS: BusPIRone HCL 15 MG TABLET PO SCH (09:59)
[2021-08-27] MEDS: NICOTINE 7 MG/24 HOUR PATCH TD SCH (10:00)
[2021-08-27 10:47] VITALS: BP 130/68
[2021-08-27 16:24] VITALS: BP 119/72
[2021-08-27] MEDS: LORazepam 2 MG TABLET PO PRN (17:14)
[2021-08-27] MEDS: RisperiDONE 4 MG TABLET PO SCH (20:52)
[2021-08-27] MEDS: ZOLPIDEM TARTRATE 10 MG TABLET PO PRN (20:52)
[2021-08-28 06:34] VITALS: BP 121/72
[2021-08-28] MEDS: RisperiDONE 1 MG TABLET PO SCH (08:42)
[2021-08-28] MEDS: HydrOXYzine HCL 25 MG TABLET PO SCH ×2 (08:42→16:20)
[2021-08-28] MEDS: BusPIRone HCL 15 MG TABLET PO SCH (08:42)
[2021-08-28] MEDS: GABAPENTIN 300 MG CAPSULE PO SCH (08:42)
[2021-08-28] MEDS: NICOTINE 7 MG/24 HOUR PATCH TD SCH (08:42)
[2021-08-28] MEDS: LORazepam 2 MG TABLET PO PRN ×2 (08:43→16:19)
[2021-08-28] MEDS: PARoxetine HCL 10 MG TABLET PO SCH (08:43)
[2021-08-28 09:19] VITALS: BP 130/65
[2021-08-28 16:16] VITALS: BP 109/68
[2021-08-28] MEDS: RisperiDONE 4 MG TABLET PO SCH (21:18)
[2021-08-28] MEDS: ZOLPIDEM TARTRATE 10 MG TABLET PO PRN (22:55)
[2021-08-28] MEDS: MAG HYDROX/AL HYDROX/SIMETH ES 30 ML SUSPENSION UDCUP PO PRN (23:00)
[2021-08-29 06:40] VITALS: BP 115/74
[2021-08-29 08:29] VITALS: BP 133/80
[2021-08-29] MEDS: HydrOXYzine HCL 25 MG TABLET PO SCH (08:58)
[2021-08-29] MEDS: PARoxetine HCL 10 MG TABLET PO SCH (08:59)
[2021-08-29] MEDS: GABAPENTIN 300 MG CAPSULE PO SCH (08:59)
[2021-08-29] MEDS: BusPIRone HCL 15 MG TABLET PO SCH (08:59)
[2021-08-29] MEDS: RisperiDONE 1 MG TABLET PO SCH (08:59)
[2021-08-29] MEDS: NICOTINE 7 MG/24 HOUR PATCH TD SCH (09:04)
[2021-08-29] MEDS ORDERED: RISP1TAB48 PO (11:02)
[2021-08-29] MEDS ORDERED: HYD25 PO (11:02)
[2021-08-29] MEDS ORDERED: RISP4TAB73 PO (11:05)
[2021-08-29] MEDS ORDERED: BUSP15 PO (11:05)
[2021-08-29] MEDS ORDERED: PARO10TA89 PO (11:06)
[2021-08-29] MEDS ORDERED: GABA-1181 PO (11:08)
== END 2021-08-29 12:05 | disposition home or self-care (01) | DRG 750 ==
LOC: B2S 23:24 → B3A 08-26 09:36
PROVIDERS: ADMIT Psychiatry & Neurology Child & Adolescent Psychiatry; ATTEND Psychiatry & Neurology Child & Adolescent Psychiatry
DX: F25.1 Schizoaffective disorder, depressive type (principal); D72.819 Decreased white blood cell count, unspecified; F10.10 Alcohol abuse, uncomplicated; F15.10 Other stimulant abuse, uncomplicated; F42.9 Obsessive-compulsive disorder, unspecified; R74.01 Elevation of levels of liver transaminase levels; Z20.822 Contact with and (suspected) exposure to COVID-19; F41.9 Anxiety disorder, unspecified; Z91.14 Patient's other noncompliance with medication regimen; Z59.00 Homelessness unspecified
CPT/HCPCS: 80053; 80061; 80307; 81003; 83036; 84439; 84443; 85025

== ENCOUNTER 2021-09-21 21:00 | Inpatient (IN) | payer MEDICAID ==
[~2021-09-21] VITALS: Ht 170.2 cm; Wt 82.6 kg
[~2021-09-21 21:00] MED LIST changes: -BUSP10TA23 PO; +BUSP15 PO; +GABA-1181 PO; +HYD25 PO; -OLAN10TA74 PO; -OLAN5TAB52 PO; -PARO-38 PO; +PARO10TA89 PO; +RISP1TAB48 PO; +RISP4TAB73 PO
[2021-09-21 22:56] LABS: GLUCOMETER DEV NAME(LOC) POC.BV
[2021-09-22] MEDS ORDERED: HALOPERIDOL 5 MG TABLET PO PRN
[2021-09-22 01:25] VITALS: BP 141/89
[2021-09-22] MEDS ORDERED: PETROLATUM,WHITE 28 GM JELLY TP PRN (07:00)
[2021-09-22] MEDS ORDERED: NICOTINE 14 MG/24 HOUR PATCH TD PRN (07:00)
[2021-09-22] MEDS ORDERED: MAG HYDROX/AL HYDROX/SIMETH ES 30 ML SUSPENSION UDCUP PO PRN (07:00)
[2021-09-22] MEDS ORDERED: ALBUTEROL SULFATE HFA 90 MCG/PUFF 8 GM INHALER IH PRN (07:00)
[2021-09-22] MEDS ORDERED: DOCUSATE SODIUM 100 MG CAPSULE PO PRN (07:00)
[2021-09-22] MEDS ORDERED: MAGNESIUM HYDROXIDE SUSPENSION 30 ML UDCUP PO PRN (07:00)
[2021-09-22] MEDS ORDERED: ONDANSETRON HCL 4 MG TABLET PO PRN (07:00)
[2021-09-22] MEDS ORDERED: IBUPROFEN 400 MG TABLET PO PRN (07:00)
[2021-09-22] MEDS ORDERED: LOPERAMIDE HCL 2 MG CAPSULE PO PRN (07:00)
[2021-09-22] MEDS ORDERED: GuaiFENesin/D-METHORPHAN [SUGAR-FREE] 200-20MG/10 ML SYRUP UDCUP PO PRN (07:00)
[2021-09-22] MEDS ORDERED: ACETAMINOPHEN 325 MG TABLET PO PRN (07:00)
[2021-09-22] MEDS ORDERED: CloNIDine HCL 0.1 MG TABLET PO PRN (07:00)
[2021-09-22 08:20] VITALS: BP 115/69
[2021-09-22 16:25] VITALS: BP 133/81
[2021-09-22] MEDS: LORazepam 2 MG TABLET PO PRN (17:44)
[2021-09-22] MEDS: ZOLPIDEM TARTRATE 10 MG TABLET PO PRN (20:24)
[2021-09-23 00:32] VITALS: BP 115/69
[2021-09-23 08:22] VITALS: BP 118/77
[2021-09-23] MEDS: BusPIRone HCL 15 MG TABLET PO SCH (08:53)
[2021-09-23] MEDS: GABAPENTIN 300 MG CAPSULE PO SCH (08:53)
[2021-09-23] MEDS: PARoxetine HCL 10 MG TABLET PO SCH (08:53)
[2021-09-23] MEDS: HydrOXYzine HCL 25 MG TABLET PO SCH ×2 (08:53→17:04)
[2021-09-23] MEDS: RisperiDONE 1 MG TABLET PO SCH (08:54)
[2021-09-23 16:13] VITALS: BP 121/75
[2021-09-23] MEDS: ZOLPIDEM TARTRATE 10 MG TABLET PO PRN (20:25)
[2021-09-23] MEDS: RisperiDONE 4 MG TABLET PO SCH (20:25)
[2021-09-24 01:05] VITALS: BP 119/68
[2021-09-24 07:32] LABS: BASOPHILS % (AUTO) 0.7 % (0.0-2.0); HEMATOCRIT 39.6 % (41-53); HEMOGLOBIN 13.3 g/dL (13.5-17.5); LYMPHOCYTES # (AUTO) 1.5 K/uL (1.0-4.8); LYMPHOCYTES % (AUTO) 39.4 % (22.0-44.0); MEAN CORPUSCULAR HGB CONC 33.5 G/dL (31.0-37.0); MEAN CORPUSCULAR VOLUME 99 fL (80-100); MONOCYTES # (AUTO) 0.3 K/uL (0.1-1.0); NEUTROPHILS # (AUTO) 1.9 K/uL (1.8-7.7); NEUTROPHILS % (AUTO) 49.9 % (40.0-70.0); PLATELET COUNT (AUTO) 208 K/uL (150-450); RED BLOOD CELL COUNT(AUTO) 4.02 MIL/uL (4.50-5.90); RED CELL DISTRIBUTION WIDTH 13.9 % (11.5-14.5)
[2021-09-24 08:16] VITALS: BP 109/71
[2021-09-24] MEDS: GABAPENTIN 300 MG CAPSULE PO SCH (09:28)
[2021-09-24] MEDS: PARoxetine HCL 10 MG TABLET PO SCH (09:28)
[2021-09-24] MEDS: BusPIRone HCL 15 MG TABLET PO SCH (09:28)
[2021-09-24] MEDS: HydrOXYzine HCL 25 MG TABLET PO SCH ×2 (09:28→16:54)
[2021-09-24] MEDS: RisperiDONE 1 MG TABLET PO SCH (09:29)
[2021-09-24] MEDS: LORazepam 2 MG TABLET PO PRN (12:45)
[2021-09-24 16:27] VITALS: BP 109/64
[2021-09-24] MEDS: RisperiDONE 4 MG TABLET PO SCH (20:37)
[2021-09-24] MEDS: ZOLPIDEM TARTRATE 10 MG TABLET PO PRN (20:51)
[2021-09-25 00:28] VITALS: BP 119/81
[2021-09-25 08:26] VITALS: BP 103/59
[2021-09-25] MEDS: GABAPENTIN 300 MG CAPSULE PO SCH (09:43)
[2021-09-25] MEDS: PARoxetine HCL 10 MG TABLET PO SCH (09:43)
[2021-09-25] MEDS: RisperiDONE 1 MG TABLET PO SCH (09:43)
[2021-09-25] MEDS: HydrOXYzine HCL 25 MG TABLET PO SCH ×2 (09:43→17:00)
[2021-09-25] MEDS: BusPIRone HCL 15 MG TABLET PO SCH (09:43)
[2021-09-25 16:22] VITALS: BP 104/67
[2021-09-25] MEDS: LORazepam 2 MG TABLET PO PRN (16:35)
[2021-09-25] MEDS: RisperiDONE 4 MG TABLET PO SCH (20:36)
[2021-09-25] MEDS: ZOLPIDEM TARTRATE 10 MG TABLET PO PRN (20:36)
[2021-09-26 01:04] VITALS: BP 118/69
[2021-09-26 08:32] VITALS: BP 100/62
[2021-09-26] MEDS: PARoxetine HCL 10 MG TABLET PO SCH (09:09)
[2021-09-26] MEDS: BusPIRone HCL 15 MG TABLET PO SCH (09:09)
[2021-09-26] MEDS: RisperiDONE 1 MG TABLET PO SCH (09:09)
[2021-09-26] MEDS: GABAPENTIN 300 MG CAPSULE PO SCH (09:09)
[2021-09-26] MEDS: HydrOXYzine HCL 25 MG TABLET PO SCH (09:09)
[2021-09-26] MEDS: LORazepam 2 MG TABLET PO PRN (11:19)
== END 2021-09-26 14:00 | disposition home or self-care (01) | DRG 750 ==
LOC: B2S 21:00
PROVIDERS: ADMIT Psychiatry & Neurology Child & Adolescent Psychiatry; ATTEND Psychiatry & Neurology Child & Adolescent Psychiatry
DX: F25.1 Schizoaffective disorder, depressive type (principal); Z59.00 Homelessness unspecified; D64.9 Anemia, unspecified; F10.10 Alcohol abuse, uncomplicated; F41.9 Anxiety disorder, unspecified; R74.01 Elevation of levels of liver transaminase levels; Z20.822 Contact with and (suspected) exposure to COVID-19; Z79.899 Other long term (current) drug therapy; Z91.14 Patient's other noncompliance with medication regimen; Z91.19 Patient's noncompliance with other medical treatment and regimen; Z56.0 Unemployment, unspecified
CPT/HCPCS: 85025; 87081

== ENCOUNTER 2023-01-02 03:40 | Emergency (ER) | payer MEDICAID, OTHER ==
[~2023-01-02] VITALS: Ht 172.7 cm; Wt 81.8 kg
[~2023-01-02 03:40] MED LIST changes: -HYD25 PO; +HYDR-4527 PO
[2023-01-02 04:32] VITALS: BP 120/78
[2023-01-02 04:37] LABS: COVID AG,FIA SOURCE NASAL SWAB
[2023-01-02 05:11] LABS: ANION GAP 11 mmol/L (8-16); CALCIUM, TOTAL 8.8 mg/dL (8.8-10.5); CARBON DIOXIDE 31 mmol/L (22-29); CHLORIDE 103 mmol/L (98-107); CREATININE 0.92 mg/dL (0.60-1.30); GLOMERULAR FILTR. RATE CALC > 60 mL/min (>60); GLUCOSE,RANDOM 89 mg/dL (70-110); POTASSIUM 4.2 mmol/L (3.5-5.1); SODIUM SERUM 145 mmol/L (136-145); UREA NITROGEN, BLOOD 11 mg/dL (7-18)
[2023-01-02 05:17] LABS: ALANINE AMINOTRANSFERASE 79 U/L (12-78); ALBUMIN 4.1 g/dL (3.4-5.0); ALKALINE PHOSPHATASE 111 U/L (46-116); ASPARTATE AMINOTRANSFERASE 57 U/L (15-37); BILIRUBIN,TOTAL 0.4 mg/dL (0.1-1.0); TOTAL PROTEIN, SERUM 7.7 g/dL (6.4-8.2)
[2023-01-02 05:21] LABS: BASOPHILS % (AUTO) 0.6 % (0.0-2.0); EOSINOPHILS % (AUTO) 0.3 % (1.0-6.0); HEMATOCRIT 42.7 % (41-53); HEMOGLOBIN 14.1 g/dL (13.5-17.5); LYMPHOCYTES # (AUTO) 1.9 K/uL (1.0-4.8); LYMPHOCYTES % (AUTO) 37.9 % (22.0-44.0); MEAN CORPUSCULAR HEMOGLOBIN 31.8 pg (26.0-34.0); MEAN CORPUSCULAR VOLUME 96 fL (80-100); MONOCYTES # (AUTO) 0.4 K/uL (0.1-1.0); MONOCYTES % (AUTO) 7.6 % (2.0-9.0); NEUTROPHILS # (AUTO) 2.6 K/uL (1.8-7.7); NEUTROPHILS % (AUTO) 53.6 % (40.0-70.0); PLATELET COUNT (AUTO) 258 K/uL (150-450); RED BLOOD CELL COUNT(AUTO) 4.43 MIL/uL (4.50-5.90); RED CELL DISTRIBUTION WIDTH 13.9 % (11.5-14.5)
[2023-01-02] MEDS ORDERED: LORazepam 1 MG TABLET PO ONE (06:00)
[2023-01-02] MEDS ORDERED: LORazepam 0.5 MG TABLET PO ONE (06:15)
== END 2023-01-02 06:28 | disposition home or self-care (01) ==
LOC: EMS 03:44
DX: F25.1 Schizoaffective disorder, depressive type (principal); F10.129 Alcohol abuse with intoxication, unspecified; F15.10 Other stimulant abuse, uncomplicated; F31.9 Bipolar disorder, unspecified; Z98.890 Other specified postprocedural states; Z20.822 Contact with and (suspected) exposure to COVID-19; Y90.9 Presence of alcohol in blood, level not specified
CPT/HCPCS: 99283; 87426; 80053; 85025; 36415; G0480

== ENCOUNTER 2023-02-21 18:19 | Inpatient (IN) | payer MEDICAID, OTHER ==
[~2023-02-21] VITALS: Ht 170.2 cm; Wt 81.6 kg
[2023-02-21] MEDS ORDERED: OLAN10 PO (22:40)
[2023-02-21] MEDS ORDERED: TRAZ-257 PO (22:40)
[2023-02-21] MEDS ORDERED: FLUO20CA36 PO (22:48)
[2023-02-21 22:58] LABS: COVID AG,FIA SOURCE NASOPHARYNGEAL
[2023-02-21] MEDS ORDERED: LORazepam 1 MG TABLET PO ONE (23:00)
[2023-02-21 23:13] LABS: BASOPHILS % (AUTO) 0.6 % (0.0-2.0); EOSINOPHILS % (AUTO) 1.6 % (1.0-6.0); HEMATOCRIT 41.6 % (41-53); LYMPHOCYTES # (AUTO) 2.5 K/uL (1.0-4.8); LYMPHOCYTES % (AUTO) 38.6 % (22.0-44.0); MEAN CORPUSCULAR HEMOGLOBIN 31.8 pg (26.0-34.0); MEAN CORPUSCULAR HGB CONC 33.6 G/dL (31.0-37.0); MEAN CORPUSCULAR VOLUME 95 fL (80-100); MONOCYTES # (AUTO) 0.4 K/uL (0.1-1.0); MONOCYTES % (AUTO) 6.7 % (2.0-9.0); NEUTROPHILS # (AUTO) 3.4 K/uL (1.8-7.7); NEUTROPHILS % (AUTO) 52.5 % (40.0-70.0); PLATELET COUNT (AUTO) 217 K/uL (150-450); RED BLOOD CELL COUNT(AUTO) 4.39 MIL/uL (4.50-5.90); RED CELL DISTRIBUTION WIDTH 13.7 % (11.5-14.5)
[2023-02-21 23:22] LABS: CARBON DIOXIDE 23 mmol/L (22-29); CHLORIDE 102 mmol/L (98-107); SODIUM SERUM 136 mmol/L (136-145)
[2023-02-21 23:23] LABS: ANION GAP 11 mmol/L (8-16); CALCIUM, TOTAL 9.7 mg/dL (8.8-10.5); GLOMERULAR FILTR. RATE CALC > 60 mL/min (>60); GLUCOSE,RANDOM 77 mg/dL (70-110); UREA NITROGEN, BLOOD 10 mg/dL (7-18)
[2023-02-21 23:28] LABS: ALANINE AMINOTRANSFERASE 90 U/L (12-78); ALBUMIN 4.1 g/dL (3.4-5.0); ALKALINE PHOSPHATASE 101 U/L (46-116); ASPARTATE AMINOTRANSFERASE 92 U/L (15-37); BILIRUBIN,TOTAL 0.9 mg/dL (0.1-1.0); TOTAL PROTEIN, SERUM 7.4 g/dL (6.4-8.2)
[2023-02-21 23:32] LABS: ACETAMINOPHEN < 2 mcg/mL (10-30)
[2023-02-21] MEDS ORDERED: ZOLPIDEM TARTRATE 10 MG TABLET PO PRN (23:45)
[2023-02-21] MEDS ORDERED: HALOPERIDOL 5 MG TABLET PO PRN (23:45)
[2023-02-21 23:47] LABS: SALICYLATE 0.5 mg/dL (2.8-20.0)
[2023-02-22] MEDS: LORazepam 2 MG TABLET PO PRN ×2 (11:08→18:53)
[2023-02-22 18:31] VITALS: BP 114/78
[2023-02-22 20:44] VITALS: BP 119/75
[2023-02-23] MEDS ORDERED: LOPERAMIDE HCL 2 MG CAPSULE PO PRN (07:00)
[2023-02-23] MEDS ORDERED: PETROLATUM,WHITE 28 GM JELLY TP PRN (07:00)
[2023-02-23] MEDS ORDERED: ONDANSETRON HCL 4 MG TABLET PO PRN (07:00)
[2023-02-23] MEDS ORDERED: IBUPROFEN 400 MG TABLET PO PRN (07:00)
[2023-02-23] MEDS ORDERED: DOCUSATE SODIUM 100 MG CAPSULE PO PRN (07:00)
[2023-02-23] MEDS ORDERED: NICOTINE 14 MG/24 HOUR PATCH TD PRN (07:00)
[2023-02-23] MEDS ORDERED: MAG HYDROX/AL HYDROX/SIMETH ES 30 ML SUSPENSION UDCUP PO PRN (07:00)
[2023-02-23] MEDS ORDERED: MAGNESIUM HYDROXIDE SUSPENSION 30 ML UDCUP PO PRN (07:00)
[2023-02-23] MEDS ORDERED: ALBUTEROL SULFATE HFA 90 MCG/PUFF 8 GM INHALER IH PRN (07:00)
[2023-02-23] MEDS ORDERED: CloNIDine HCL 0.1 MG TABLET PO PRN (07:00)
[2023-02-23] MEDS ORDERED: GuaiFENesin/D-METHORPHAN [SUGAR-FREE] 200-20MG/10 ML SYRUP UDCUP PO PRN (07:00)
[2023-02-23 08:58] VITALS: BP 100/60
[2023-02-23] MEDS: LORazepam 2 MG TABLET PO PRN ×3 (10:09→20:54)
[2023-02-23] MEDS: NICOTINE 14 MG/24 HOUR PATCH TD SCH (10:13)
[2023-02-23 20:40] VITALS: BP 138/62
[2023-02-23] MEDS: ACETAMINOPHEN 325 MG TABLET PO PRN (20:46)
[2023-02-24] MEDS: NICOTINE 14 MG/24 HOUR PATCH TD SCH (09:13)
[2023-02-24 09:16] VITALS: BP 128/75
[2023-02-24] MEDS: LORazepam 2 MG TABLET PO PRN (16:44)
[2023-02-24 20:49] VITALS: BP 104/66
[2023-02-25 08:31] VITALS: BP 138/85
[2023-02-25] MEDS: LORazepam 2 MG TABLET PO PRN (08:55)
[2023-02-25] MEDS: NICOTINE 14 MG/24 HOUR PATCH TD SCH (08:55)
[2023-02-25] MEDS ORDERED: BUSP10TA23 PO (15:13)
[2023-02-25] MEDS ORDERED: OLAN5TAB77 PO (15:13)
[2023-02-25] MEDS ORDERED: FOLI-130 PO (15:13)
[2023-02-25] MEDS: FLUoxetine HCL 20 MG CAPSULE PO SCH (16:14)
[2023-02-25] MEDS: BusPIRone HCL 15 MG TABLET PO SCH (16:14)
[2023-02-25] MEDS: OLANZapine 10 MG TABLET PO SCH (16:14)
[2023-02-25] MEDS: GABAPENTIN 300 MG CAPSULE PO SCH (16:15)
[2023-02-25 20:34] VITALS: BP 102/65
[2023-02-26 08:32] VITALS: BP 112/67
[2023-02-26] MEDS: FLUoxetine HCL 20 MG CAPSULE PO SCH (09:02)
[2023-02-26] MEDS: OLANZapine 10 MG TABLET PO SCH (09:02)
[2023-02-26] MEDS: NICOTINE 14 MG/24 HOUR PATCH TD SCH (09:02)
[2023-02-26] MEDS: GABAPENTIN 300 MG CAPSULE PO SCH ×2 (09:03→16:43)
[2023-02-26] MEDS: BusPIRone HCL 15 MG TABLET PO SCH (09:03)
[2023-02-26] MEDS: ACETAMINOPHEN 325 MG TABLET PO PRN (19:58)
[2023-02-26 20:35] VITALS: BP 102/63
[2023-02-27 08:32] VITALS: BP 121/74
[2023-02-27] MEDS: GABAPENTIN 300 MG CAPSULE PO SCH ×2 (08:35→16:32)
[2023-02-27] MEDS: BusPIRone HCL 15 MG TABLET PO SCH (08:35)
[2023-02-27] MEDS: FLUoxetine HCL 20 MG CAPSULE PO SCH (08:35)
[2023-02-27] MEDS: OLANZapine 10 MG TABLET PO SCH (08:35)
[2023-02-27] MEDS: NICOTINE 14 MG/24 HOUR PATCH TD SCH (08:35)
[2023-02-27] MEDS: LORazepam 2 MG TABLET PO PRN (19:00)
[2023-02-27 20:24] VITALS: BP 10/65
[2023-02-28 08:18] VITALS: BP 106/61
[2023-02-28] MEDS: OLANZapine 10 MG TABLET PO SCH (08:36)
[2023-02-28] MEDS: FLUoxetine HCL 20 MG CAPSULE PO SCH (08:36)
[2023-02-28] MEDS: GABAPENTIN 300 MG CAPSULE PO SCH ×2 (08:36→16:39)
[2023-02-28] MEDS: BusPIRone HCL 15 MG TABLET PO SCH (08:36)
[2023-02-28] MEDS: NICOTINE 14 MG/24 HOUR PATCH TD SCH (08:37)
[2023-02-28] MEDS: LORazepam 2 MG TABLET PO PRN (11:39)
[2023-02-28 20:16] VITALS: BP 122/84
[2023-02-28] MEDS: TraZODone HCL 100 MG TABLET PO PRN (22:58)
[2023-02-28 23:56] LABS: GLUCOMETER DEV NAME(LOC) POC.BV
[2023-03-01 08:16] VITALS: BP 120/80
[2023-03-01] MEDS: FOLIC ACID 1 MG TABLET PO SCH (08:40)
[2023-03-01] MEDS: MULTIVITAMINS WITH MINERALS, THERAPEUTIC TABLET PO SCH (08:40)
[2023-03-01] MEDS: THIAMINE 100 MG TABLET PO SCH (08:40)
[2023-03-01] MEDS: BusPIRone HCL 15 MG TABLET PO SCH (08:40)
[2023-03-01] MEDS: FLUoxetine HCL 20 MG CAPSULE PO SCH (08:40)
[2023-03-01] MEDS: OLANZapine 10 MG TABLET PO SCH (08:40)
[2023-03-01] MEDS: GABAPENTIN 300 MG CAPSULE PO SCH ×2 (08:40→16:18)
[2023-03-01] MEDS: NICOTINE 14 MG/24 HOUR PATCH TD SCH (08:41)
[2023-03-01] MEDS: LORazepam 2 MG TABLET PO PRN (13:27)
[2023-03-01 20:08] VITALS: BP 113/70
[2023-03-01] MEDS: TraZODone HCL 100 MG TABLET PO PRN (20:31)
[2023-03-02] MEDS: BusPIRone HCL 15 MG TABLET PO SCH (08:15)
[2023-03-02] MEDS: OLANZapine 10 MG TABLET PO SCH (08:15)
[2023-03-02] MEDS: THIAMINE 100 MG TABLET PO SCH (08:16)
[2023-03-02] MEDS: GABAPENTIN 300 MG CAPSULE PO SCH ×2 (08:16→16:32)
[2023-03-02] MEDS: FLUoxetine HCL 20 MG CAPSULE PO SCH (08:16)
[2023-03-02] MEDS: FOLIC ACID 1 MG TABLET PO SCH (08:16)
[2023-03-02] MEDS: MULTIVITAMINS WITH MINERALS, THERAPEUTIC TABLET PO SCH (08:16)
[2023-03-02] MEDS: NICOTINE 14 MG/24 HOUR PATCH TD SCH (08:18)
[2023-03-02 08:21] VITALS: BP 102/70
[2023-03-02] MEDS: LORazepam 2 MG TABLET PO PRN ×2 (09:18→18:35)
[2023-03-02] MEDS: TraZODone HCL 100 MG TABLET PO PRN (20:32)
[2023-03-02 20:38] VITALS: BP 115/66
[2023-03-03 08:24] VITALS: BP 138/77
[2023-03-03] MEDS: OLANZapine 10 MG TABLET PO SCH (08:59)
[2023-03-03] MEDS: THIAMINE 100 MG TABLET PO SCH (08:59)
[2023-03-03] MEDS: GABAPENTIN 300 MG CAPSULE PO SCH ×2 (08:59→16:33)
[2023-03-03] MEDS: BusPIRone HCL 15 MG TABLET PO SCH (08:59)
[2023-03-03] MEDS: NICOTINE 14 MG/24 HOUR PATCH TD SCH (08:59)
[2023-03-03] MEDS: FOLIC ACID 1 MG TABLET PO SCH (08:59)
[2023-03-03] MEDS: FLUoxetine HCL 20 MG CAPSULE PO SCH (08:59)
[2023-03-03] MEDS: MULTIVITAMINS WITH MINERALS, THERAPEUTIC TABLET PO SCH (09:08)
[2023-03-03] MEDS: LORazepam 2 MG TABLET PO PRN ×2 (09:08→17:20)
[2023-03-03 20:37] VITALS: BP 105/72
[2023-03-04] MEDS ORDERED: BUSP15 PO ×2 (08:25→14:02)
[2023-03-04] MEDS ORDERED: GABA-1181 PO ×2 (08:26→14:02)
[2023-03-04] MEDS ORDERED: OLAN10TA74 PO (08:27)
[2023-03-04 08:31] VITALS: BP 109/74
[2023-03-04] MEDS: OLANZapine 10 MG TABLET PO SCH (08:34)
[2023-03-04] MEDS: GABAPENTIN 300 MG CAPSULE PO SCH (08:34)
[2023-03-04] MEDS: FOLIC ACID 1 MG TABLET PO SCH (08:34)
[2023-03-04] MEDS: MULTIVITAMINS WITH MINERALS, THERAPEUTIC TABLET PO SCH (08:34)
[2023-03-04] MEDS: NICOTINE 14 MG/24 HOUR PATCH TD SCH (08:34)
[2023-03-04] MEDS: BusPIRone HCL 15 MG TABLET PO SCH (08:34)
[2023-03-04] MEDS: THIAMINE 100 MG TABLET PO SCH (08:34)
[2023-03-04] MEDS: FLUoxetine HCL 20 MG CAPSULE PO SCH (08:34)
[2023-03-04] MEDS ORDERED: FLUO20CA36 PO (14:02)
[2023-03-04] MEDS ORDERED: OLAN10 PO (14:02)
== END 2023-03-04 14:11 | disposition home or self-care (01) | DRG 750 ==
LOC: EMS 18:43 → B2S 02-22 17:08 → EMS 02-22 17:36
PROVIDERS: ADMIT Psychiatry & Neurology Child & Adolescent Psychiatry; ATTEND Psychiatry & Neurology Child & Adolescent Psychiatry
DX: F25.1 Schizoaffective disorder, depressive type (principal); R45.851 Suicidal ideations; F10.129 Alcohol abuse with intoxication, unspecified; F41.9 Anxiety disorder, unspecified; G47.00 Insomnia, unspecified; T43.212A Poisoning by selective serotonin and norepinephrine reuptake inhibitors, intentional self-harm, initial encounter; Y90.5 Blood alcohol level of 100-119 mg/100 ml; F32.A Depression, unspecified; F19.10 Other psychoactive substance abuse, uncomplicated; Z20.822 Contact with and (suspected) exposure to COVID-19; R74.01 Elevation of levels of liver transaminase levels; Z88.5 Allergy status to narcotic agent; Y92.89 Other specified places as the place of occurrence of the external cause; Z71.51 Drug abuse counseling and surveillance of drug abuser
CPT/HCPCS: 80053; 85025; 99285; G0480; G0481

== ENCOUNTER 2023-04-11 16:39 | Inpatient (IN) | payer MEDICAID, OTHER ==
[~2023-04-11] VITALS: Ht 170.2 cm; Wt 82.6 kg
[~2023-04-11 16:39] MED LIST changes: +FLUO20CA36 PO; -HYDR-4527 PO; +OLAN10 PO; +OLAN10TA74 PO; -PARO10TA89 PO; -RISP1TAB48 PO; -RISP4TAB73 PO
[2023-04-11 17:50] LABS: ANION GAP 14 mmol/L (8-16); CARBON DIOXIDE 23 mmol/L (22-29); CHLORIDE 105 mmol/L (98-107); CREATININE 0.74 mg/dL (0.60-1.30); GLOMERULAR FILTR. RATE CALC > 60 mL/min (>60); GLUCOSE,RANDOM 91 mg/dL (70-110); POTASSIUM 3.8 mmol/L (3.5-5.1); SODIUM SERUM 142 mmol/L (136-145)
[2023-04-11 17:53] LABS: BASOPHILS % (AUTO) 0.4 % (0.0-2.0); EOSINOPHILS % (AUTO) 0.5 % (1.0-6.0); HEMATOCRIT 45.2 % (41-53); HEMOGLOBIN 14.8 g/dL (13.5-17.5); LYMPHOCYTES # (AUTO) 2.3 K/uL (1.0-4.8); LYMPHOCYTES % (AUTO) 39.1 % (22.0-44.0); MEAN CORPUSCULAR HEMOGLOBIN 31.7 pg (26.0-34.0); MEAN CORPUSCULAR HGB CONC 32.8 G/dL (31.0-37.0); MEAN CORPUSCULAR VOLUME 97 fL (80-100); MONOCYTES # (AUTO) 0.4 K/uL (0.1-1.0); MONOCYTES % (AUTO) 6.6 % (2.0-9.0); NEUTROPHILS # (AUTO) 3.2 K/uL (1.8-7.7); NEUTROPHILS % (AUTO) 53.4 % (40.0-70.0); PLATELET COUNT (AUTO) 226 K/uL (150-450); RED BLOOD CELL COUNT(AUTO) 4.67 MIL/uL (4.50-5.90); RED CELL DISTRIBUTION WIDTH 14.1 % (11.5-14.5)
[2023-04-11 17:58] LABS: ALANINE AMINOTRANSFERASE 132 U/L (12-78); ALBUMIN 4.1 g/dL (3.4-5.0); ALKALINE PHOSPHATASE 113 U/L (46-116); ASPARTATE AMINOTRANSFERASE 78 U/L (15-37); BILIRUBIN,TOTAL 0.2 mg/dL (0.1-1.0)
[2023-04-11 17:59] LABS: ACETAMINOPHEN < 2 mcg/mL (10-30)
[2023-04-11 18:59] LABS: COVID AG,FIA SOURCE NASAL SWAB
[2023-04-11 21:39] LABS: AMPHET/METH SCREEN,URINE POSITIVE (NEGATIVE); BARBITURATE SCREEN, URINE NEGATIVE (NEGATIVE); BENZODIAZEPINES SCREEN,URINE NEGATIVE (NEGATIVE); CANNABINOID SCREEN,URINE NEGATIVE (NEGATIVE); COCAINE SCREEN,URINE NEGATIVE (NEGATIVE); METHADONE SCREEN, URINE NEGATIVE (NEGATIVE); OPIATE SCREEN,URINE NEGATIVE (NEGATIVE); PHENCYCLIDINE SCREEN,URINE NEGATIVE (NEGATIVE)
[2023-04-11] MEDS ORDERED: LORazepam 2 MG TABLET PO PRN (22:30)
[2023-04-11] MEDS ORDERED: HALOPERIDOL 5 MG TABLET PO PRN (22:30)
[2023-04-11 23:05] LABS: ANION GAP 14 mmol/L (8-16); CARBON DIOXIDE 25 mmol/L (22-29); CHLORIDE 105 mmol/L (98-107); CREATININE 0.91 mg/dL (0.60-1.30); GLOMERULAR FILTR. RATE CALC > 60 mL/min (>60); GLUCOSE,RANDOM 146 mg/dL (70-110); POTASSIUM 3.4 mmol/L (3.5-5.1); SODIUM SERUM 144 mmol/L (136-145)
[2023-04-11 23:11] LABS: ALANINE AMINOTRANSFERASE 124 U/L (12-78); ALBUMIN 3.8 g/dL (3.4-5.0); ALKALINE PHOSPHATASE 107 U/L (46-116); ASPARTATE AMINOTRANSFERASE 73 U/L (15-37); BILIRUBIN,TOTAL 0.3 mg/dL (0.1-1.0); TOTAL PROTEIN, SERUM 7.6 g/dL (6.4-8.2)
[2023-04-11 23:13] LABS: ACETAMINOPHEN < 2 mcg/mL (10-30)
[2023-04-12] VITALS (11 sets, daily range): BP systolic 104–128; BP diastolic 58–81
[2023-04-12] MEDS ORDERED: LOPERAMIDE HCL 2 MG CAPSULE PO PRN (09:00)
[2023-04-12] MEDS ORDERED: MAGNESIUM HYDROXIDE SUSPENSION 30 ML UDCUP PO PRN (09:00)
[2023-04-12] MEDS ORDERED: PETROLATUM,WHITE 28 GM JELLY TP PRN (09:00)
[2023-04-12] MEDS ORDERED: MAG HYDROX/AL HYDROX/SIMETH ES 30 ML SUSPENSION UDCUP PO PRN (09:00)
[2023-04-12] MEDS ORDERED: ONDANSETRON HCL 4 MG TABLET PO PRN (09:00)
[2023-04-12] MEDS ORDERED: NICOTINE 14 MG/24 HOUR PATCH TD PRN (09:00)
[2023-04-12] MEDS ORDERED: ACETAMINOPHEN 325 MG TABLET PO PRN (09:00)
[2023-04-12] MEDS ORDERED: POTASSIUM CHLORIDE 20 MEQ ER TABLET PO ONE (09:00)
[2023-04-12] MEDS ORDERED: GuaiFENesin/D-METHORPHAN [SUGAR-FREE] 200-20MG/10 ML SYRUP UDCUP PO PRN (09:00)
[2023-04-12] MEDS ORDERED: ALBUTEROL SULFATE HFA 90 MCG/PUFF 8 GM INHALER IH PRN (09:00)
[2023-04-12] MEDS ORDERED: CloNIDine HCL 0.1 MG TABLET PO PRN (09:00)
[2023-04-12] MEDS ORDERED: IBUPROFEN 400 MG TABLET PO PRN (09:00)
[2023-04-12] MEDS ORDERED: DOCUSATE SODIUM 100 MG CAPSULE PO PRN (09:00)
[2023-04-12] MEDS ORDERED: HydrOXYzine PAMOATE 50 MG CAPSULE PO PRN (10:15)
[2023-04-12] MEDS ORDERED: CYANOCOBALAMIN 1,000 MCG/ML VIAL IM ONE (10:15)
[2023-04-12] MEDS: BusPIRone HCL 15 MG TABLET PO SCH (10:31)
[2023-04-12] MEDS: FLUoxetine HCL 20 MG CAPSULE PO SCH (10:31)
[2023-04-12] MEDS: MULTIVITAMINS WITH MINERALS, THERAPEUTIC TABLET PO SCH (10:31)
[2023-04-12] MEDS: THIAMINE 100 MG TABLET PO SCH ×2 (10:31→16:17)
[2023-04-12] MEDS: FOLIC ACID 1 MG TABLET PO SCH (10:31)
[2023-04-12] MEDS: GABAPENTIN 300 MG CAPSULE PO SCH ×2 (10:31→20:28)
[2023-04-12] MEDS: LORazepam 2 MG TABLET PO PRN ×2 (10:43→13:59)
[2023-04-12] MEDS: OLANZapine 10 MG TABLET PO SCH (20:28)
[2023-04-12] MEDS: ZOLPIDEM TARTRATE 10 MG TABLET PO PRN (20:58)
[2023-04-13 00:47] VITALS: BP 121/81
[2023-04-13 02:15] VITALS: BP 124/78
[2023-04-13 06:36] VITALS: BP 116/67
[2023-04-13] MEDS ORDERED: LORazepam 2 MG TABLET PO PRN (07:00)
[2023-04-13 08:54] VITALS: BP 130/87
[2023-04-13] MEDS: FLUoxetine HCL 20 MG CAPSULE PO SCH (09:57)
[2023-04-13] MEDS: FOLIC ACID 1 MG TABLET PO SCH (09:57)
[2023-04-13] MEDS: LORazepam 2 MG TABLET PO SCH ×4 (09:57→21:39)
[2023-04-13] MEDS: GABAPENTIN 300 MG CAPSULE PO SCH ×2 (09:57→21:40)
[2023-04-13] MEDS: BusPIRone HCL 15 MG TABLET PO SCH (09:57)
[2023-04-13] MEDS: MULTIVITAMINS WITH MINERALS, THERAPEUTIC TABLET PO SCH (09:57)
[2023-04-13] MEDS: THIAMINE 100 MG TABLET PO SCH ×2 (10:01→16:39)
[2023-04-13 16:17] VITALS: BP 121/71
[2023-04-13] MEDS: ZOLPIDEM TARTRATE 10 MG TABLET PO PRN (21:40)
[2023-04-13] MEDS: OLANZapine 10 MG TABLET PO SCH (21:40)
[2023-04-14 01:28] VITALS: BP 113/75
[2023-04-14] MEDS: THIAMINE 100 MG TABLET PO SCH (08:27)
[2023-04-14] MEDS: BusPIRone HCL 15 MG TABLET PO SCH (08:27)
[2023-04-14] MEDS: MULTIVITAMINS WITH MINERALS, THERAPEUTIC TABLET PO SCH (08:27)
[2023-04-14] MEDS: LORazepam 2 MG TABLET PO SCH (08:27)
[2023-04-14] MEDS: FOLIC ACID 1 MG TABLET PO SCH (08:27)
[2023-04-14] MEDS: FLUoxetine HCL 20 MG CAPSULE PO SCH (08:27)
[2023-04-14] MEDS: GABAPENTIN 300 MG CAPSULE PO SCH (08:27)
[2023-04-14 08:49] VITALS: BP 118/80
[2023-04-14] MEDS ORDERED: OLAN10 PO (11:28)
[2023-04-14] MEDS ORDERED: FLUO20CA36 PO (11:28)
[2023-04-14] MEDS ORDERED: THIA100T80 PO (11:28)
[2023-04-14] MEDS ORDERED: BUSP15 PO (11:28)
[2023-04-14] MEDS ORDERED: GABA-1181 PO (11:28)
[2023-04-15] MEDS ORDERED: LORazepam 1 MG TABLET PO PRN (07:00)
[2023-04-15] MEDS ORDERED: LORazepam 1 MG TABLET PO SCH (09:00)
[2023-04-16] MEDS ORDERED: LORazepam 1 MG TABLET PO PRN (07:00)
== END 2023-04-14 17:28 | disposition left against medical advice (07) | DRG 750 ==
LOC: EMS 16:40 → B2S 04-12
PROVIDERS: ADMIT Psychiatry & Neurology Psychiatry; ATTEND Psychiatry & Neurology Child & Adolescent Psychiatry
DX: F25.1 Schizoaffective disorder, depressive type (principal); R45.851 Suicidal ideations; F41.9 Anxiety disorder, unspecified; E87.6 Hypokalemia; R73.9 Hyperglycemia, unspecified; Z20.822 Contact with and (suspected) exposure to COVID-19; Z53.21 Procedure and treatment not carried out due to patient leaving prior to being seen by health care provider; F10.10 Alcohol abuse, uncomplicated; Y90.6 Blood alcohol level of 120-199 mg/100 ml; T43.212A Poisoning by selective serotonin and norepinephrine reuptake inhibitors, intentional self-harm, initial encounter; G62.9 Polyneuropathy, unspecified; F15.10 Other stimulant abuse, uncomplicated; Y92.89 Other specified places as the place of occurrence of the external cause; Z79.899 Other long term (current) drug therapy; Z88.5 Allergy status to narcotic agent
CPT/HCPCS: 80053; 80307; 83735; 84132; 85025; 93005; 99291; G0480; G0481; J3420

== ENCOUNTER 2023-05-15 19:17 | Inpatient (IN) | payer MEDICAID, OTHER ==
[~2023-05-15] VITALS: Ht 172.7 cm; Wt 86.7 kg
[~2023-05-15 19:17] MED LIST changes: -OLAN10TA74 PO; +THIA100T80 PO
[2023-05-15 20:34] LABS: AMPHET/METH SCREEN,URINE POSITIVE (NEGATIVE); BARBITURATE SCREEN, URINE NEGATIVE (NEGATIVE); BENZODIAZEPINES SCREEN,URINE POSITIVE (NEGATIVE); CANNABINOID SCREEN,URINE NEGATIVE (NEGATIVE); COCAINE SCREEN,URINE NEGATIVE (NEGATIVE); METHADONE SCREEN, URINE NEGATIVE (NEGATIVE); OPIATE SCREEN,URINE NEGATIVE (NEGATIVE); PHENCYCLIDINE SCREEN,URINE NEGATIVE (NEGATIVE)
[2023-05-15] MEDS ORDERED: MAG HYDROX/AL HYDROX/SIMETH ES 30 ML SUSPENSION UDCUP PO ONE (20:45)
[2023-05-15] MEDS ORDERED: FAMOTIDINE 20 MG TABLET PO ONE (20:45)
[2023-05-15 21:02] LABS: BASOPHILS % (AUTO) 0.6 % (0.0-2.0); EOSINOPHILS % (AUTO) 1.5 % (1.0-6.0); HEMATOCRIT 39.2 % (41-53); HEMOGLOBIN 13.3 g/dL (13.5-17.5); LYMPHOCYTES # (AUTO) 2.2 K/uL (1.0-4.8); LYMPHOCYTES % (AUTO) 52.3 % (22.0-44.0); MEAN CORPUSCULAR HEMOGLOBIN 33.3 pg (26.0-34.0); MEAN CORPUSCULAR VOLUME 98 fL (80-100); MONOCYTES # (AUTO) 0.3 K/uL (0.1-1.0); MONOCYTES % (AUTO) 6.8 % (2.0-9.0); NEUTROPHILS # (AUTO) 1.7 K/uL (1.8-7.7); NEUTROPHILS % (AUTO) 38.8 % (40.0-70.0); PLATELET COUNT (AUTO) 217 K/uL (150-450); RED CELL DISTRIBUTION WIDTH 14.1 % (11.5-14.5)
[2023-05-15 21:05] LABS: ANION GAP 14 mmol/L (8-16); CALCIUM, TOTAL 8.3 mg/dL (8.8-10.5); CARBON DIOXIDE 24 mmol/L (22-29); CHLORIDE 104 mmol/L (98-107); CREATININE 0.93 mg/dL (0.60-1.30); GLOMERULAR FILTR. RATE CALC > 60 mL/min (>60); GLUCOSE,RANDOM 148 mg/dL (70-110); POTASSIUM 3.4 mmol/L (3.5-5.1); SODIUM SERUM 142 mmol/L (136-145)
[2023-05-15 21:08] LABS: COVID AG,FIA SOURCE NASAL SWAB
[2023-05-15 21:11] LABS: ALANINE AMINOTRANSFERASE 120 U/L (12-78); ALBUMIN 3.6 g/dL (3.4-5.0); ALKALINE PHOSPHATASE 104 U/L (46-116); ASPARTATE AMINOTRANSFERASE 75 U/L (15-37); BILIRUBIN,TOTAL 0.5 mg/dL (0.1-1.0); TOTAL PROTEIN, SERUM 6.9 g/dL (6.4-8.2)
[2023-05-15] MEDS: ZOLPIDEM TARTRATE 10 MG TABLET PO PRN (23:57)
[2023-05-15] MEDS: LORazepam 2 MG TABLET PO PRN (23:57)
[2023-05-16 01:06] VITALS: BP 118/62; PULSE 90; RESP 18; TEMP 97.9
[2023-05-16] MEDS ORDERED: MAGNESIUM HYDROXIDE SUSPENSION 30 ML UDCUP PO PRN (06:45)
[2023-05-16] MEDS ORDERED: ACETAMINOPHEN 325 MG TABLET PO PRN (06:45)
[2023-05-16] MEDS ORDERED: IBUPROFEN 400 MG TABLET PO PRN (06:45)
[2023-05-16] MEDS ORDERED: LOPERAMIDE HCL 2 MG CAPSULE PO PRN (06:45)
[2023-05-16] MEDS ORDERED: ONDANSETRON HCL 4 MG TABLET PO PRN (06:45)
[2023-05-16] MEDS ORDERED: DOCUSATE SODIUM 100 MG CAPSULE PO PRN (06:45)
[2023-05-16] MEDS ORDERED: MAG HYDROX/AL HYDROX/SIMETH ES 30 ML SUSPENSION UDCUP PO PRN (06:45)
[2023-05-16] MEDS ORDERED: CloNIDine HCL 0.1 MG TABLET PO PRN (06:45)
[2023-05-16] MEDS ORDERED: ALBUTEROL SULFATE HFA 90 MCG/PUFF 8 GM INHALER IH PRN (06:45)
[2023-05-16] MEDS ORDERED: PETROLATUM,WHITE 28 GM JELLY TP PRN (06:45)
[2023-05-16] MEDS ORDERED: GuaiFENesin/D-METHORPHAN [SUGAR-FREE] 200-20MG/10 ML SYRUP UDCUP PO PRN (06:45)
[2023-05-16] MEDS: THIAMINE 100 MG TABLET PO SCH ×2 (08:32→16:44)
[2023-05-16] MEDS: BusPIRone HCL 15 MG TABLET PO SCH (12:25)
[2023-05-16] MEDS: FLUoxetine HCL 20 MG CAPSULE PO SCH (12:26)
[2023-05-16] MEDS: LORazepam 2 MG TABLET PO PRN ×2 (12:56→21:09)
[2023-05-16 13:01] VITALS: BP 94/54; PULSE 59; RESP 17; TEMP 98
[2023-05-16] MEDS: OLANZapine 10 MG TABLET PO SCH (20:14)
[2023-05-16 20:29] VITALS: BP 111/77; PULSE 82; RESP 20; TEMP 98; O2SAT 96
[2023-05-16] MEDS: ZOLPIDEM TARTRATE 10 MG TABLET PO PRN (21:09)
[2023-05-17] MEDS: THIAMINE 100 MG TABLET PO SCH ×2 (08:21→16:29)
[2023-05-17] MEDS: BusPIRone HCL 15 MG TABLET PO SCH (08:21)
[2023-05-17] MEDS: FLUoxetine HCL 20 MG CAPSULE PO SCH (08:21)
[2023-05-17 09:13] VITALS: BP 100/52; PULSE 79; RESP 18; TEMP 97.3; O2SAT 98
[2023-05-17 20:25] VITALS: BP 101/60; PULSE 61; RESP 18; TEMP 97.7; O2SAT 96
[2023-05-17] MEDS: OLANZapine 10 MG TABLET PO SCH (20:37)
[2023-05-18 07:38] LABS: HEMOGLOBIN A1C 5.1 % (3.8-5.6)
[2023-05-18] MEDS: FLUoxetine HCL 20 MG CAPSULE PO SCH (08:05)
[2023-05-18] MEDS: THIAMINE 100 MG TABLET PO SCH ×2 (08:05→16:39)
[2023-05-18] MEDS: BusPIRone HCL 15 MG TABLET PO SCH (08:05)
[2023-05-18 08:33] VITALS: BP 106/60; PULSE 80; RESP 18; TEMP 97.8; O2SAT 97
[2023-05-18] MEDS: LORazepam 2 MG TABLET PO PRN (16:40)
[2023-05-18] MEDS: ZOLPIDEM TARTRATE 10 MG TABLET PO PRN (20:16)
[2023-05-18] MEDS: OLANZapine 10 MG TABLET PO SCH (20:16)
[2023-05-18 20:33] VITALS: BP 110/61; PULSE 78; RESP 18; TEMP 98; O2SAT 98
[2023-05-19] MEDS: FLUoxetine HCL 20 MG CAPSULE PO SCH (08:16)
[2023-05-19] MEDS: BusPIRone HCL 15 MG TABLET PO SCH (08:16)
[2023-05-19] MEDS: THIAMINE 100 MG TABLET PO SCH ×2 (08:16→16:25)
[2023-05-19] MEDS: HALOPERIDOL 5 MG TABLET PO PRN (08:32)
[2023-05-19 08:45] VITALS: BP 100/60; PULSE 65; RESP 17; TEMP 97.8; O2SAT 97
[2023-05-19] MEDS: LORazepam 2 MG TABLET PO PRN ×2 (11:47→17:04)
[2023-05-19] MEDS: ZOLPIDEM TARTRATE 10 MG TABLET PO PRN (20:16)
[2023-05-19] MEDS: OLANZapine 10 MG TABLET PO SCH (20:16)
[2023-05-19 20:32] VITALS: BP 101/62; PULSE 68; RESP 18; TEMP 98.3; O2SAT 96
[2023-05-20] MEDS: THIAMINE 100 MG TABLET PO SCH ×2 (08:04→17:41)
[2023-05-20] MEDS: BusPIRone HCL 15 MG TABLET PO SCH (08:04)
[2023-05-20] MEDS: FLUoxetine HCL 20 MG CAPSULE PO SCH (08:04)
[2023-05-20 10:38] VITALS: BP 123/79; PULSE 87; RESP 18; TEMP 98; O2SAT 98
[2023-05-20] MEDS: LORazepam 2 MG TABLET PO PRN (12:50)
[2023-05-20] MEDS: HALOPERIDOL 5 MG TABLET PO PRN (12:50)
[2023-05-20 20:13] VITALS: BP 104/70; PULSE 75; RESP 20; TEMP 97.7; O2SAT 97
[2023-05-20] MEDS: ZOLPIDEM TARTRATE 10 MG TABLET PO PRN (20:24)
[2023-05-20] MEDS: OLANZapine 10 MG TABLET PO SCH (20:24)
[2023-05-21 09:06] VITALS: BP 110/73; PULSE 90; RESP 17; TEMP 97.5; O2SAT 98
[2023-05-21] MEDS: LORazepam 2 MG TABLET PO PRN ×2 (09:08→16:39)
[2023-05-21] MEDS: BusPIRone HCL 15 MG TABLET PO SCH (09:08)
[2023-05-21] MEDS: FLUoxetine HCL 20 MG CAPSULE PO SCH (09:08)
[2023-05-21] MEDS: THIAMINE 100 MG TABLET PO SCH ×2 (09:08→16:39)
[2023-05-21] MEDS: HALOPERIDOL 5 MG TABLET PO PRN (16:39)
[2023-05-21] MEDS: FOLIC ACID 1 MG TABLET PO SCH (19:59)
[2023-05-21 20:23] VITALS: BP 110/75; PULSE 79; RESP 19; TEMP 98.4; O2SAT 100
[2023-05-21] MEDS: OLANZapine 10 MG TABLET PO SCH (20:34)
[2023-05-21] MEDS: ZOLPIDEM TARTRATE 10 MG TABLET PO PRN (20:34)
[2023-05-22] MEDS: THIAMINE 100 MG TABLET PO SCH ×2 (08:13→16:01)
[2023-05-22] MEDS: FOLIC ACID 1 MG TABLET PO SCH (08:13)
[2023-05-22] MEDS: FLUoxetine HCL 20 MG CAPSULE PO SCH (08:13)
[2023-05-22] MEDS: MULTIVITAMINS WITH MINERALS, THERAPEUTIC TABLET PO SCH (08:13)
[2023-05-22] MEDS: BusPIRone HCL 15 MG TABLET PO SCH (08:13)
[2023-05-22 08:30] VITALS: RESP 17
[2023-05-22] MEDS: LORazepam 2 MG TABLET PO PRN ×2 (08:33→14:56)
[2023-05-22] MEDS: HALOPERIDOL 5 MG TABLET PO PRN ×2 (08:33→14:56)
[2023-05-22 20:17] VITALS: BP 108/64; PULSE 78; RESP 20; TEMP 98.2; O2SAT 98
[2023-05-22] MEDS: OLANZapine 10 MG TABLET PO SCH (20:56)
[2023-05-22] MEDS: ZOLPIDEM TARTRATE 10 MG TABLET PO PRN (20:56)
[2023-05-23 08:26] VITALS: RESP 17
[2023-05-23] MEDS: THIAMINE 100 MG TABLET PO SCH ×2 (08:35→16:47)
[2023-05-23] MEDS: FOLIC ACID 1 MG TABLET PO SCH (08:35)
[2023-05-23] MEDS: BusPIRone HCL 15 MG TABLET PO SCH (08:35)
[2023-05-23] MEDS: MULTIVITAMINS WITH MINERALS, THERAPEUTIC TABLET PO SCH (08:35)
[2023-05-23] MEDS: LORazepam 2 MG TABLET PO PRN ×2 (08:38→16:47)
[2023-05-23] MEDS: HALOPERIDOL 5 MG TABLET PO PRN ×2 (08:39→16:47)
[2023-05-23] MEDS: FLUoxetine HCL 20 MG CAPSULE PO SCH (08:57)
[2023-05-23] MEDS: OLANZapine 10 MG TABLET PO SCH (20:14)
[2023-05-23] MEDS: ZOLPIDEM TARTRATE 10 MG TABLET PO PRN (20:14)
[2023-05-23 20:16] VITALS: BP 118/62; PULSE 70; RESP 18; TEMP 98; O2SAT 98
[2023-05-24] MEDS: FLUoxetine HCL 20 MG CAPSULE PO SCH (08:52)
[2023-05-24] MEDS: BusPIRone HCL 15 MG TABLET PO SCH (08:52)
[2023-05-24] MEDS: MULTIVITAMINS WITH MINERALS, THERAPEUTIC TABLET PO SCH (08:52)
[2023-05-24] MEDS: FOLIC ACID 1 MG TABLET PO SCH (08:52)
[2023-05-24] MEDS: THIAMINE 100 MG TABLET PO SCH ×2 (08:52→17:53)
[2023-05-24 09:00] VITALS: BP 98/55; PULSE 87; RESP 18; TEMP 98.6; O2SAT 96
[2023-05-24] MEDS: LORazepam 2 MG TABLET PO PRN ×2 (12:27→18:27)
[2023-05-24] MEDS: HALOPERIDOL 5 MG TABLET PO PRN (12:27)
[2023-05-24] MEDS: ZOLPIDEM TARTRATE 10 MG TABLET PO PRN (20:27)
[2023-05-24] MEDS: OLANZapine 10 MG TABLET PO SCH (20:29)
[2023-05-24 20:50] VITALS: BP 110/76; PULSE 61; RESP 18; TEMP 98; O2SAT 100
[2023-05-25] MEDS: FOLIC ACID 1 MG TABLET PO SCH (08:15)
[2023-05-25] MEDS: MULTIVITAMINS WITH MINERALS, THERAPEUTIC TABLET PO SCH (08:15)
[2023-05-25] MEDS: THIAMINE 100 MG TABLET PO SCH ×2 (08:15→16:09)
[2023-05-25] MEDS: BusPIRone HCL 15 MG TABLET PO SCH (08:15)
[2023-05-25] MEDS: FLUoxetine HCL 20 MG CAPSULE PO SCH (08:15)
[2023-05-25] MEDS: LORazepam 2 MG TABLET PO PRN ×2 (08:36→16:07)
[2023-05-25] MEDS: HALOPERIDOL 5 MG TABLET PO PRN ×2 (08:36→16:07)
[2023-05-25 09:22] VITALS: BP 129/67; PULSE 89; RESP 20; TEMP 96.8; O2SAT 99
[2023-05-25] MEDS: NICOTINE 14 MG/24 HOUR PATCH TD PRN (16:48)
[2023-05-25] MEDS: OLANZapine 10 MG TABLET PO SCH (20:28)
[2023-05-25 20:41] VITALS: BP 113/70; PULSE 81; RESP 18; TEMP 97.9; O2SAT 96
[2023-05-26] MEDS: ZOLPIDEM TARTRATE 10 MG TABLET PO PRN (00:10)
[2023-05-26] MEDS: THIAMINE 100 MG TABLET PO SCH (08:10)
[2023-05-26] MEDS: FLUoxetine HCL 20 MG CAPSULE PO SCH (08:10)
[2023-05-26] MEDS: FOLIC ACID 1 MG TABLET PO SCH (08:10)
[2023-05-26] MEDS: BusPIRone HCL 15 MG TABLET PO SCH (08:10)
[2023-05-26] MEDS: MULTIVITAMINS WITH MINERALS, THERAPEUTIC TABLET PO SCH (08:10)
[2023-05-26 08:28] VITALS: BP 106/70; PULSE 83; RESP 17; TEMP 97.9; O2SAT 99
[2023-05-26] MEDS: NICOTINE 14 MG/24 HOUR PATCH TD PRN (10:14)
== END 2023-05-26 12:58 | disposition home or self-care (01) | DRG 750 ==
LOC: EMS 19:19 → B3A 22:41
PROVIDERS: ADMIT Psychiatry & Neurology Child & Adolescent Psychiatry; ATTEND Psychiatry & Neurology Child & Adolescent Psychiatry
DX: F25.1 Schizoaffective disorder, depressive type (principal); R45.851 Suicidal ideations; D64.9 Anemia, unspecified; G47.00 Insomnia, unspecified; E87.6 Hypokalemia; Z20.822 Contact with and (suspected) exposure to COVID-19; R74.01 Elevation of levels of liver transaminase levels; F31.9 Bipolar disorder, unspecified; F41.9 Anxiety disorder, unspecified; F19.10 Other psychoactive substance abuse, uncomplicated; K21.9 Gastro-esophageal reflux disease without esophagitis; Z88.5 Allergy status to narcotic agent; Z79.899 Other long term (current) drug therapy; Z59.00 Homelessness unspecified
CPT/HCPCS: 80053; 80061; 80307; 83036; 83690; 84132; 85025; 87081; 99285; G0480

== ENCOUNTER 2023-06-06 00:50 | Inpatient (IN) | payer MEDICAID, OTHER ==
[~2023-06-06] VITALS: Ht 170.2 cm; Wt 85.3 kg
[~2023-06-06 00:50] MED LIST changes: -GABA-1181 PO; -THIA100T80 PO
[2023-06-06 02:20] LABS: BASOPHILS % (AUTO) 0.6 % (0.0-2.0); EOSINOPHILS % (AUTO) 1.4 % (1.0-6.0); HEMATOCRIT 41.4 % (41-53); HEMOGLOBIN 13.8 g/dL (13.5-17.5); LYMPHOCYTES # (AUTO) 2.1 K/uL (1.0-4.8); LYMPHOCYTES % (AUTO) 40.5 % (22.0-44.0); MEAN CORPUSCULAR HEMOGLOBIN 32.7 pg (26.0-34.0); MEAN CORPUSCULAR HGB CONC 33.3 G/dL (31.0-37.0); MEAN CORPUSCULAR VOLUME 98 fL (80-100); MONOCYTES # (AUTO) 0.3 K/uL (0.1-1.0); MONOCYTES % (AUTO) 6.3 % (2.0-9.0); NEUTROPHILS # (AUTO) 2.7 K/uL (1.8-7.7); NEUTROPHILS % (AUTO) 51.2 % (40.0-70.0); PLATELET COUNT (AUTO) 224 K/uL (150-450); RED BLOOD CELL COUNT(AUTO) 4.21 MIL/uL (4.50-5.90); RED CELL DISTRIBUTION WIDTH 13.9 % (11.5-14.5)
[2023-06-06 02:21] LABS: COVID AG,FIA SOURCE NASAL SWAB
[2023-06-06 02:25] LABS: ANION GAP 12 mmol/L (8-16); CALCIUM, TOTAL 8.6 mg/dL (8.8-10.5); CARBON DIOXIDE 27 mmol/L (22-29); CHLORIDE 103 mmol/L (98-107); CREATININE 0.92 mg/dL (0.60-1.30); GLOMERULAR FILTR. RATE CALC > 60 mL/min (>60); GLUCOSE,RANDOM 93 mg/dL (70-110); SODIUM SERUM 142 mmol/L (136-145)
[2023-06-06 02:30] LABS: ALANINE AMINOTRANSFERASE 77 U/L (12-78); ALBUMIN 3.8 g/dL (3.4-5.0); ALKALINE PHOSPHATASE 109 U/L (46-116); ASPARTATE AMINOTRANSFERASE 47 U/L (15-37); BILIRUBIN,TOTAL 0.5 mg/dL (0.1-1.0); TOTAL PROTEIN, SERUM 7.3 g/dL (6.4-8.2)
[2023-06-06] MEDS ORDERED: OLANZapine 5 MG TABLET PO ONE (03:15)
[2023-06-06] MEDS ORDERED: LORazepam 1 MG TABLET PO ONE (03:15)
[2023-06-06] MEDS ORDERED: DiphenhydrAMINE HCL 25 MG CAPSULE PO ONE (03:30)
[2023-06-06 04:35] LABS: AMPHET/METH SCREEN,URINE POSITIVE (NEGATIVE); BARBITURATE SCREEN, URINE NEGATIVE (NEGATIVE); BENZODIAZEPINES SCREEN,URINE NEGATIVE (NEGATIVE); CANNABINOID SCREEN,URINE NEGATIVE (NEGATIVE); COCAINE SCREEN,URINE NEGATIVE (NEGATIVE); METHADONE SCREEN, URINE NEGATIVE (NEGATIVE); OPIATE SCREEN,URINE NEGATIVE (NEGATIVE); PHENCYCLIDINE SCREEN,URINE NEGATIVE (NEGATIVE)
[2023-06-06 11:42] VITALS: BP 104/57; PULSE 94; RESP 17; TEMP 98.2; O2SAT 96
[2023-06-06] MEDS: LORazepam 2 MG TABLET PO PRN ×2 (11:43→20:21)
[2023-06-06] MEDS: HALOPERIDOL 5 MG TABLET PO PRN (11:43)
[2023-06-06 19:40] VITALS: BP 110/60; PULSE 81; RESP 18; TEMP 98
[2023-06-06 20:09] VITALS: BP 110/60; TEMP 98
[2023-06-06] MEDS: OLANZapine 7.5 MG TABLET PO SCH (20:21)
[2023-06-06] MEDS: ZOLPIDEM TARTRATE 10 MG TABLET PO PRN (20:21)
[2023-06-06 21:51] VITALS: BP 110/60; PULSE 81; RESP 18; TEMP 98
[2023-06-07] VITALS (12 sets, daily range): BP systolic 95–125; BP diastolic 60–87; PULSE 62–95; RESP 15–20; TEMP 97.5–98.6; O2SAT 65–97
[2023-06-07] MEDS: FLUoxetine HCL 20 MG CAPSULE PO SCH (08:09)
[2023-06-07] MEDS: BusPIRone HCL 15 MG TABLET PO SCH (08:10)
[2023-06-07] MEDS: LORazepam 2 MG TABLET PO PRN ×2 (10:45→20:05)
[2023-06-07] MEDS ORDERED: IBUPROFEN 400 MG TABLET PO PRN (12:45)
[2023-06-07] MEDS ORDERED: ACETAMINOPHEN 325 MG TABLET PO PRN (12:45)
[2023-06-07] MEDS ORDERED: MAG HYDROX/AL HYDROX/SIMETH ES 30 ML SUSPENSION UDCUP PO PRN (12:45)
[2023-06-07] MEDS ORDERED: PETROLATUM,WHITE 28 GM JELLY TP PRN (12:45)
[2023-06-07] MEDS ORDERED: CloNIDine HCL 0.1 MG TABLET PO PRN (12:45)
[2023-06-07] MEDS ORDERED: NICOTINE 14 MG/24 HOUR PATCH TD PRN (12:45)
[2023-06-07] MEDS ORDERED: MAGNESIUM HYDROXIDE SUSPENSION 30 ML UDCUP PO PRN (12:45)
[2023-06-07] MEDS ORDERED: DOCUSATE SODIUM 100 MG CAPSULE PO PRN (12:45)
[2023-06-07] MEDS ORDERED: ONDANSETRON HCL 4 MG TABLET PO PRN (12:45)
[2023-06-07] MEDS ORDERED: GuaiFENesin/D-METHORPHAN [SUGAR-FREE] 200-20MG/10 ML SYRUP UDCUP PO PRN (12:45)
[2023-06-07] MEDS ORDERED: LOPERAMIDE HCL 2 MG CAPSULE PO PRN (12:45)
[2023-06-07] MEDS ORDERED: ALBUTEROL SULFATE HFA 90 MCG/PUFF 8 GM INHALER IH PRN (12:45)
[2023-06-07] MEDS: OLANZapine 7.5 MG TABLET PO SCH (20:05)
[2023-06-07] MEDS: ZOLPIDEM TARTRATE 10 MG TABLET PO PRN (20:05)
[2023-06-08 03:00] VITALS: RESP 16
[2023-06-08 07:00] VITALS: RESP 16
[2023-06-08 07:56] LABS: BASOPHILS % (AUTO) 0.5 % (0.0-2.0); EOSINOPHILS % (AUTO) 2.8 % (1.0-6.0); HEMATOCRIT 40.6 % (41-53); HEMOGLOBIN 13.8 g/dL (13.5-17.5); LYMPHOCYTES # (AUTO) 1.3 K/uL (1.0-4.8); MEAN CORPUSCULAR HEMOGLOBIN 33.3 pg (26.0-34.0); MEAN CORPUSCULAR HGB CONC 33.9 G/dL (31.0-37.0); MEAN CORPUSCULAR VOLUME 98 fL (80-100); MONOCYTES # (AUTO) 0.3 K/uL (0.1-1.0); MONOCYTES % (AUTO) 6.5 % (2.0-9.0); NEUTROPHILS # (AUTO) 2.6 K/uL (1.8-7.7); NEUTROPHILS % (AUTO) 60.2 % (40.0-70.0); PLATELET COUNT (AUTO) 198 K/uL (150-450); RED BLOOD CELL COUNT(AUTO) 4.14 MIL/uL (4.50-5.90); RED CELL DISTRIBUTION WIDTH 13.6 % (11.5-14.5)
[2023-06-08 08:05] LABS: HEMOGLOBIN A1C 5.1 % (3.8-5.6)
[2023-06-08 08:06] VITALS: BP 117/81; PULSE 85; RESP 18; TEMP 98.3; O2SAT 99
[2023-06-08 08:18] LABS: CHOL/HDL RATIO 2.4 (4.2-7.3); THYROID STIMULATING HORMONE 3.06 uIU/mL (0.36-3.74)
[2023-06-08] MEDS: HALOPERIDOL 5 MG TABLET PO PRN ×2 (08:54→13:59)
[2023-06-08] MEDS: BusPIRone HCL 15 MG TABLET PO SCH (08:54)
[2023-06-08] MEDS: FLUoxetine HCL 20 MG CAPSULE PO SCH (08:54)
[2023-06-08] MEDS: LORazepam 2 MG TABLET PO PRN ×2 (08:54→13:59)
[2023-06-08 11:00] VITALS: BP 95/65; PULSE 80; RESP 16; TEMP 98.3; O2SAT 97
[2023-06-08 20:07] VITALS: BP 121/86; PULSE 87; RESP 19; TEMP 98; O2SAT 98
[2023-06-08] MEDS: OLANZapine 7.5 MG TABLET PO SCH (20:29)
[2023-06-09] MEDS: FLUoxetine HCL 20 MG CAPSULE PO SCH (08:01)
[2023-06-09] MEDS: BusPIRone HCL 15 MG TABLET PO SCH (08:01)
[2023-06-09 08:15] VITALS: RESP 17
[2023-06-09] MEDS: LORazepam 2 MG TABLET PO PRN ×3 (10:18→21:31)
[2023-06-09] MEDS: HALOPERIDOL 5 MG TABLET PO PRN (17:30)
[2023-06-09 20:10] VITALS: BP 128/80; PULSE 86; RESP 18; TEMP 97.8; O2SAT 98
[2023-06-09] MEDS: ZOLPIDEM TARTRATE 10 MG TABLET PO PRN (21:24)
[2023-06-09] MEDS: OLANZapine 10 MG TABLET PO SCH (21:24)
[2023-06-10] MEDS: FLUoxetine HCL 20 MG CAPSULE PO SCH (08:00)
[2023-06-10] MEDS: BusPIRone HCL 15 MG TABLET PO SCH (08:00)
[2023-06-10 08:25] VITALS: RESP 18
[2023-06-10] MEDS: HALOPERIDOL 5 MG TABLET PO PRN (16:46)
[2023-06-10] MEDS: LORazepam 2 MG TABLET PO PRN ×2 (16:46→20:46)
[2023-06-10 20:05] VITALS: BP 108/78; PULSE 79; RESP 18; TEMP 98.2; O2SAT 96
[2023-06-10] MEDS: OLANZapine 10 MG TABLET PO SCH (20:46)
[2023-06-10] MEDS: ZOLPIDEM TARTRATE 10 MG TABLET PO PRN (20:46)
[2023-06-11] MEDS: BusPIRone HCL 15 MG TABLET PO SCH (08:00)
[2023-06-11] MEDS: FLUoxetine HCL 20 MG CAPSULE PO SCH (08:00)
[2023-06-11 08:19] VITALS: BP 100/65; PULSE 76; RESP 17; TEMP 98.9; O2SAT 96
[2023-06-11] MEDS ORDERED: BUSP15 PO (13:02)
[2023-06-11] MEDS ORDERED: FLUO20CA36 PO (13:02)
[2023-06-11] MEDS ORDERED: OLAN10TA74 PO (13:02)
== END 2023-06-11 13:45 | disposition home or self-care (01) | DRG 750 ==
LOC: EMS 00:52 → B3A 10:14
PROVIDERS: ADMIT Psychiatry & Neurology Child & Adolescent Psychiatry; ATTEND Psychiatry & Neurology Child & Adolescent Psychiatry
DX: F25.1 Schizoaffective disorder, depressive type (principal); R45.851 Suicidal ideations; F10.10 Alcohol abuse, uncomplicated; F15.10 Other stimulant abuse, uncomplicated; Z20.822 Contact with and (suspected) exposure to COVID-19; F41.9 Anxiety disorder, unspecified; F19.10 Other psychoactive substance abuse, uncomplicated; G47.00 Insomnia, unspecified; I10 Essential (primary) hypertension; Z79.899 Other long term (current) drug therapy; Z91.51 Personal history of suicidal behavior; Z91.52 Personal history of nonsuicidal self-harm; Z88.5 Allergy status to narcotic agent; Z88.8 Allergy status to other drugs, medicaments and biological substances
CPT/HCPCS: 80053; 80061; 80307; 83036; 84443; 85025; 87081; 99285; G0480

== ENCOUNTER 2023-12-27 14:06 | Emergency (ER) | payer MEDICAID, OTHER ==
[~2023-12-27] VITALS: Ht 170.2 cm; Wt 84.1 kg
[~2023-12-27 14:06] MED LIST changes: -OLAN10 PO; +OLAN10TA74 PO
[2023-12-27 16:47] VITALS: TEMP 98.2
[2023-12-27 18:30] VITALS: BP 102/52; PULSE 77; RESP 15
== END 2023-12-27 18:44 | disposition home or self-care (01) ==
LOC: EMS 14:15
DX: F10.129 Alcohol abuse with intoxication, unspecified (principal); F41.9 Anxiety disorder, unspecified; F31.9 Bipolar disorder, unspecified; F20.9 Schizophrenia, unspecified; F15.90 Other stimulant use, unspecified, uncomplicated; Z98.890 Other specified postprocedural states; Z88.5 Allergy status to narcotic agent; Z88.8 Allergy status to other drugs, medicaments and biological substances; Y90.9 Presence of alcohol in blood, level not specified
CPT/HCPCS: 99283; Z7502